=== PATIENT | female | born 1950 | race Caucasian/White ===

== ENCOUNTER → 2018-04-18 09:44 | Outpatient (CLI) | payer OTHER, SELFPAY ==
--- NOTE | 2018-04-18 | DI.MG.S_ITS ---
BILATERAL DIGITAL SCREENING MAMMOGRAM 3D/2D WITH CAD: 04/18/2018 CLINICAL: Routine screening. Comparison is made to exams dated: 03/30/2017 mammogram, 03/28/2016 mammogram - [facility], and 02/02/2015 mammogram - [facility]. The tissue of both breasts is heterogeneously dense. This may lower the sensitivity of mammography. Current study was also evaluated with a Computer Aided Detection (CAD) system. No significant masses, calcifications, or other findings are seen in either breast. There has been no significant interval change. IMPRESSION: NEGATIVE There is no mammographic evidence of malignancy. A 1 year screening mammogram is recommended. This exam was interpreted at Station ID: [id number]. NOTE: For mammograms, a report in lay terms will be sent to the patient. Approximately 15% of breast malignancies will not be visualized mammographically. In the management of a palpable breast mass, a negative mammogram must not discourage biopsy of a clinically suspicious lesion. Electronically Signed By: Ky [email or web address]/adamaris:04/18/2018 19:02:53 letter sent: Normal Exam ACR BI-RADS Category 1: Negative [id number]
== END ==
PROVIDERS: PCP Internal Medicine; Visit Provider Internal Medicine
DX: M89.9 Disorder of bone, unspecified (principal); Z12.31 Encounter for screening mammogram for malignant neoplasm of breast
CPT/HCPCS: 77063; 77067; 77080

== ENCOUNTER → 2019-03-07 13:39 | Outpatient (CLI) | payer MEDICARE, SELFPAY ==
--- NOTE | 2019-03-07 | DI.RAD.S_ITS ---
PROCEDURE: XR SHOULDER RT MIN 2V INDICATIONS: RT SHOULDER PAIN TECHNIQUE: 3 views of the shoulder were acquired. COMPARISON: None. FINDINGS: Bones: No fractures or dislocations. No suspicious bony lesions. Visualized ribs appear intact. Mild acromioclavicular and severe glenohumeral joint narrowing with periarticular osteophyte formation. Superior migration of the humeral head. Soft tissues: No suspicious soft tissue calcifications. IMPRESSION: 1. Severe glenohumeral joint degeneration. 2. Superior migration of the humeral head consistent with rotator cuff pathology and/or muscle atrophy. If indicated MRI could be performed to further evaluate the soft tissues. Dictated by: Kemal LISA Interpreted: Olga Al MD on 03/07/2019 at 14:02 Approved by: Huy Cobian M.D. on 03/11/2019 at 9:34
== END ==
PROVIDERS: PCP Internal Medicine; Visit Provider Internal Medicine
DX: M25.511 Pain in right shoulder (principal); M19.011 Primary osteoarthritis, right shoulder
CPT/HCPCS: 73030

== ENCOUNTER → 2019-04-21 13:59 | Outpatient (CLI) | payer MEDICARE, SELFPAY ==
--- NOTE | 2019-04-21 | DI.MG.S_ITS ---
BILATERAL DIGITAL SCREENING MAMMOGRAM 3D/2D WITH CAD: 04/21/2019 CLINICAL: Routine screening. Comparison is made to exams dated: 04/18/2018 mammogram, 03/30/2017 mammogram, and 03/28/2016 mammogram - [facility]. The tissue of both breasts is heterogeneously dense. This may lower the sensitivity of mammography. Current study was also evaluated with a Computer Aided Detection (CAD) system. No significant masses, calcifications, or other findings are seen in either breast. There has been no significant interval change. IMPRESSION: NEGATIVE There is no mammographic evidence of malignancy. A 1 year screening mammogram is recommended. This exam was interpreted at Station ID: [id number]. NOTE: For mammograms, a report in lay terms will be sent to the patient. Approximately 15% of breast malignancies will not be visualized mammographically. In the management of a palpable breast mass, a negative mammogram must not discourage biopsy of a clinically suspicious lesion. Electronically Signed By: Orlando olmos/[email or web address]:04/21/2019 18:18:13 letter sent: Normal Exam ACR BI-RADS Category 1: Negative [id number]
--- NOTE | 2019-04-21 | DI.RAD.S_ITS ---
PROCEDURE: XR FOOT LT MIN 3V INDICATIONS: LEFT FOOT PAIN TECHNIQUE: 3 views of the foot were acquired. COMPARISON: [facility] [place], YOGESH, XR FOOT 3+ VIEWS LEFT, 03/18/2019, 10:05. FINDINGS: Bones: Chronic appearing fracture the base of the second toe proximal phalanx. There is diffuse interphalangeal joint degeneration. Severe second MTP joint degeneration there is also first and third MTP joint degeneration as well as diffuse hindfoot degenerative sclerosis and spurring. Plantar and posterior calcaneal spur. Central subchondral lucency projecting in the third metatarsal head as before Soft tissues: No tibiotalar joint effusion. Achilles tendon appears normal. IMPRESSION: Severe diffuse left foot osteoarthritis as above. No interval change Dictated by: Shahab Garcia M.D. on 04/21/2019 at 16:43 Approved by: Shahab Garcia M.D. on 04/21/2019 at 16:46
== END ==
PROVIDERS: PCP Internal Medicine; Visit Provider Internal Medicine
DX: Z12.31 Encounter for screening mammogram for malignant neoplasm of breast (principal); M25.572 Pain in left ankle and joints of left foot; M19.072 Primary osteoarthritis, left ankle and foot
CPT/HCPCS: 73630; 77063; 77067

== ENCOUNTER → 2019-09-16 11:09 | Outpatient (CLI) | payer MEDICARE, SELFPAY ==
--- NOTE | 2019-09-16 | DI.RAD.S_ITS ---
PROCEDURE: XR CERVICAL SPINE 2V OR 3V INDICATIONS: Neck pain TECHNIQUE: 5 view(s) of the cervical spine were acquired. COMPARISON: None. FINDINGS: Bones: No fracture identified. Straightening of the normal lordotic curvature. Multilevel degenerative endplate sclerosis and spurring. Diffuse facet arthropathy. Grade 1 anterolisthesis of C4 on C5. Moderate narrowing of the C5-C6 and C6-C7 disc spaces. Soft tissues: No prevertebral soft tissue swelling. IMPRESSION: Multilevel cervical spondylosis most pronounced at C5-C6 and C6-C7. Diffuse facet arthropathy Straightening of the normal lordotic curvature. Dictated by: Shahab Garcia M.D. on 09/16/2019 at 13:11 Approved by: Shahab Garcia M.D. on 09/16/2019 at 13:13
== END ==
PROVIDERS: PCP Internal Medicine; Referring Provider Internal Medicine; Visit Provider Internal Medicine
DX: M54.2 Cervicalgia (principal); M47.812 Spondylosis without myelopathy or radiculopathy, cervical region
CPT/HCPCS: 72040

== ENCOUNTER → 2019-11-26 08:26 | Outpatient (CLI) | payer MEDICARE, SELFPAY ==
--- NOTE | 2019-11-26 | DI.RAD.S_ITS ---
PROCEDURE: XR SHOULDER RT MIN 2V INDICATIONS: hx of shoulder replacement TECHNIQUE: 3 views of the shoulder were acquired. COMPARISON: [facility], CR, XR SHOULDER RT MIN 2V, 03/07/2019, 13:40. FINDINGS: Bones: No fracture. Right brooke arthroplasty in expected postoperative alignment. Hardware appears intact. No evidence of hardware loosening or failure. Soft tissues: No suspicious soft tissue calcifications. IMPRESSION: Expected postoperative alignment of shoulder arthroplasty. Dictated by: Shahab Garcia M.D. on 11/26/2019 at 9:29 Approved by: Shahab Garcia M.D. on 11/26/2019 at 9:30
== END ==
PROVIDERS: PCP Internal Medicine; Referring Provider Internal Medicine; Visit Provider Physician Assistant
DX: Z47.1 Aftercare following joint replacement surgery (principal); Z96.611 Presence of right artificial shoulder joint
CPT/HCPCS: 73030

== ENCOUNTER → 2020-01-27 12:48 | Outpatient (CLI) | payer MEDICARE, SELFPAY ==
--- NOTE | 2020-01-27 | DI.US.S_ITS ---
PROCEDURE: US SOFT TISSUE HEAD AND NECK INDICATIONS: LOCALIZED ENLARGED LYMPH NODES TECHNIQUE: Real-time scanning was performed of the neck region of interest, with image documentation. COMPARISON: None. FINDINGS: Multiple grayscale images were acquired at the patient directed area of palpable concern involving the posterior right neck. There is no underlying mass, fluid collection, or adenopathy. Overlying skin appears normal in sonographic appearance. IMPRESSION: No sonographic abnormalities identified at the patient directed area of palpable concern involving the right posterior neck. Dictated by: Orlando Sequeira M.D. on 01/27/2020 at 16:20 Approved by: Orlando Sequeira M.D. on 01/27/2020 at 16:21
== END ==
PROVIDERS: PCP Internal Medicine; Referring Provider Internal Medicine; Visit Provider Internal Medicine
DX: R59.0 Localized enlarged lymph nodes (principal)
CPT/HCPCS: 76536

== ENCOUNTER 2020-03-25 13:45 | Outpatient (RCR) | payer MEDICARE, SELFPAY ==
--- NOTE | 2020-03-02 16:40 | PT.OIE ---
Current Diagnoses Cervicalgia (03/02/20) Past Medical History (Last Updated 04/22/19 @ 15:17 by Consuelo Levy RN) History of migraine (Acute) Hypothyroid (Acute) Maxillary sinusitis (Acute ~09/2016) Past Surgical History (Last Updated 04/22/19 @ 15:17 by Consuelo Levy RN) Hx of sinus surgery (Acute) Visit Care Team Role Provider Type EDISON Randhawa Attending Provider Advanced Upholsterer Outside Family Provider Primary Care Provider Referring Provider Specialty: Family Practice Address: [address] [place] [address], [facility] Email: [email or web address] Physical Therapy Initial Evaluation PT-OP-A Visit Information Start: 03/02/20 12:52 Freq: Status: Active Protocol: Document 03/02/20 15:54 HH (Rec: 03/02/20 16:40 HH [email or web address]) Out-Patient Physical Therapy Visit Information Visit Information Visit Type Initial Evaluation Visit Start Time 13:48 Visit Stop Time 14:30 Total Visit Minutes 42 Visit Number 1 Number of BORING MACHINE SET UP OPERATOR JIG Visits 0 Evaluation Information Evaluation Date 03/02/20 PT-OP-B Current Condition Start: 03/02/20 12:52 Freq: Status: Active Protocol: Document 03/02/20 15:54 HH (Rec: 03/02/20 16:40 HH [email or web address]) Current Condition History of Current Condition Onset Date years ago Current Complaints chronic neck pain and tension headache History of Current Condition Pt is a 69 yo female here for chronic neck pain started years ago. Pt stated she had severe neck with radiating R shoulder pain last year and then received R shoulder replacement this april. (pt also had L shoulder replacement years ago) Although her shoulder pain and ROM have improved, she still has R neck pain. She described her neck pain as dull achy pain and located at muscle bump area who thought it was an enlarged lymph node. Pt did x-ray and US r/o abnormalities. Her pain tends to get worse towards the end of the day and it becomes tension headache at the base of the skull as well. Pt usually take tylenol 1000mg twice a day, along with hot/ cold pad to feel better. Movement does not aggravate her symptoms. Prior Treatments and Tests US 01/27/20 @ neck =No sonographic abnormalities identified at the patient directed area of palpable concern involving the right posterior neck. x-ray 09/15: IMPRESSION: Multilevel cervical spondylosis most pronounced at C5-C6 and C6-C7. Diffuse facet arthropathy. Straightening of the normal lordotic curvature. Treatment Goals Patient/Caregiver Goals 1. to be pain free during the day 2. to be headache free at the end of the day. PT-OP-C Subjective Start: 03/02/20 12:52 Freq: Status: Active Protocol: Document 03/02/20 15:54 HH (Rec: 03/02/20 16:40 HH [email or web address]) Patient Questionnaires Neck Disability Index NDI Score 7 Quick Dash- Upper Extremity Quick Dash UE Score 22.7 Quick Dash UE Impairment 20 to 39% Impaired (Score 20- 39) PT-OP-F Manual Assessment Start: 03/02/20 12:52 Freq: Status: Active Protocol: Document 03/02/20 15:54 HH (Rec: 03/02/20 16:40 HH [email or web address]) Manual Assessments Soft Tissue Assessment Soft Tissue Mobility Assessment tenderness to pressure at R paraspinals at C5-C6 level. Slight muscle bump noted. tenderness noted to suboccipital muscle group but no radiating pain PT-OP-K Range of Motion Start: 03/02/20 12:52 Freq: Status: Active Protocol: Document 03/02/20 15:54 HH (Rec: 03/02/20 16:40 HH [email or web address]) Cervical Spine Range of Motion Cervical Spine Active Degrees Testing Position Standing Flexion 42 Extension 70 Rotation Left 72 Rotation Right 68 Lateral Flexion Left 24 Lateral Flexion Right 25 ROM Limitations Soft Tissue Tightness Comments no pain noted. PT-OP-L Special Tests Start: 03/02/20 12:52 Freq: Status: Active Protocol: Document 03/02/20 15:54 HH (Rec: 03/02/20 16:40 HH [email or web address]) Special Tests Cervical Spine Special Tests Traction Test Results -ve Spurling's Test Test Results -ve PT-OP-M Strength Start: 03/02/20 12:52 Freq: Status: Active Protocol: Document 03/02/20 15:54 HH (Rec: 03/02/20 16:40 HH [email or web address]) Cervical Spine Strength Cervical Spine Manual Muscle Testing Testing Position Supine Comments deep cervical flexion test= 13 s, excessive engagement with SCM. PT-OP-Q Treatments Start: 03/02/20 12:52 Freq: Status: Active Protocol: Document 03/02/20 15:54 HH (Rec: 03/02/20 16:40 HH [email or web address]) Therapeutic Exercises Supine Exercises tennis ball Supine Exercise Name STM Equipment Used 2 tennis ball in sock Reps/Minutes 2 mins Comments for HEP neck isometric hold Supine Exercise Name deep cervical flexion position Side bilateral Reps/Minutes 5 sec hold x 5 Comments for HEP chin tuck Side bilateral Reps/Minutes 8 x 2 Comments for HEP against pillow PT-OP-T Assessment and Plan Start: 03/02/20 12:52 Freq: Status: Active Protocol: Document 03/02/20 15:54 (Rec: 03/02/20 16:40 HH [email or web address]) Physical Therapy Assessment Rehab Potential Rehabilitation Potential Excellent Evaluation Complexity Number of Personal Factors/Comorbidities 1-2 Number of Body Systems Impaired 1-2 Clinical Presentation at Evaluation Stable Impairments Impairments Functional Activities, Functional Mobility,Pain, Posture,ROM,Soft Tissue Mobility,Strength Goals HEP Impairment pt does not have HEP Snf Goal (LTG) pt will be compliant to HEP independently and safely at home to manage her neck pain LTG Duration 4 weeks tension headache Impairment pt has tension headache towards the end of the day Short Term Goal (STG) pt will have no more than 4 times of tension headache during the week STG Duration 4 weeks Music Manager Goal (LTG) pt will no longer have tension headache in a daily basis LTG Duration 8 weeks neck stability Impairment deep cervical flexor test = 13s Short Term Goal (STG) pt will improve her deep cervical flexors strength by completing deep cervical flexion test by 20 s STG Duration 4 weeks Music Manager Goal (LTG) pt will improve her deep cervical flexors strength by completing deep cervical flexion test by 30 s LTG Duration 8 weeks Neck pain Impairment neck pain 4/10 at all time Short Term Goal (STG) Pt will have UNDERLINER no more than 3 /10 at the end of the day STG Duration 4 weeks Music Manager Goal (LTG) pt will not need to take tylenol for pain management and will have UNDERLINER no more than 2/10 at the end of the day LTG Duration 8 weeks Assessment Summary Assessment Pt is a 69yo female here for her chronic neck pain (pt had bilateral shoulder replacements). Upon assessment , pt presents neck instability with significant weakness for deep cervical flexors. She also has tenderness to pressure at suboccipital muscle group which possibly leads to her tension headache d/t her significant FHP. Pt denies any radicular symptoms and her tends to get worse towards the end of the day. Pt reports improved of her symptoms after introduction of her new HEP. Pt will beenfit from skilled therapy to improve her deep cervical flexors strength, cervical stability and overall upper cervical mobility in order for her to be pain/ headache free for functional activities. Physical Therapy Plan Frequency and Duration Frequency of Treatment Every Other Week Duration of Treatment 10 weeks Plan of Care Start Date 03/02/20 Plan of Care End Date 05/16/20 Therapeutic Interventions Therapeutic Interventions Home Exercise Program,Joint Mobilizations,Manual Therapy, Neuromuscular Re-education, Patient/Caregiver Education, Self-Care/Home Management,Soft Tissue Mobilization,Taping, Therapeutic Activities, Therapeutic Exercises Modalities Biofeedback,Cold Pack/Ice Massage,Electric Stimulation, Hot Packs,Infrared Therapy, Traction- Mechanical Next Visit Focus/Plan Next Note Type Treatment Note Next Visit Plan suboccipital release recheck HEP upper cervical mobility, check Tspine mobility deep cervical flexor strengthening
--- NOTE | 2020-03-02 16:40 | PT.OPPOC ---
Physical, Occupational & Speech Therapy At [facility] Current Diagnoses Cervicalgia (03/02/20) Visit Care Team Role Provider Type EDISON Randhawa Attending Provider Advanced Residence Leasing Agent Family Provider Primary Care Provider Referring Provider Specialty: Family Practice Address: [address] [place] [address] [place], [address] Email: [email or web address] Plan Of Care PT-OP-T Assessment and Plan Start: 03/02/20 12:52 Freq: Status: Active Protocol: Document 03/02/20 15:54 HH (Rec: 03/02/20 16:40 HH [email or web address]) Physical Therapy Assessment Rehab Potential Rehabilitation Potential Excellent Evaluation Complexity Number of Personal Factors/Comorbidities 1-2 Number of Body Systems Impaired 1-2 Clinical Presentation at Evaluation Stable Impairments Impairments Functional Activities, Functional Mobility,Pain, Posture,ROM,Soft Tissue Mobility,Strength Goals HEP Impairment pt does not have HEP Halfway Goal (LTG) pt will be compliant to HEP independently and safely at home to manage her neck pain LTG Duration 4 weeks tension headache Impairment pt has tension headache towards the end of the day Short Term Goal (STG) pt will have no more than 4 times of tension headache during the week STG Duration 4 weeks Halfway Goal (LTG) pt will no longer have tension headache in a daily basis LTG Duration 8 weeks neck stability Impairment deep cervical flexor test = 13s Short Term Goal (STG) pt will improve her deep cervical flexors strength by completing deep cervical flexion test by 20 s STG Duration 4 weeks Halfway Goal (LTG) pt will improve her deep cervical flexors strength by completing deep cervical flexion test by 30 s LTG Duration 8 weeks Neck pain Impairment neck pain 4/10 at all time Short Term Goal (STG) Pt will have PHYSICAL GEOGRAPHER no more than 3 /10 at the end of the day STG Duration 4 weeks Wardrobe Assistant Goal (LTG) pt will not need to take tylenol for pain management and will have PHYSICAL GEOGRAPHER no more than 2/10 at the end of the day LTG Duration 8 weeks Assessment Summary Assessment Pt is a 69yo female here for her chronic neck pain (pt had bilateral shoulder replacements). Upon assessment , pt presents neck instability with significant weakness for deep cervical flexors. She also has tenderness to pressure at suboccipital muscle group which possibly leads to her tension headache d/t her significant FHP. Pt denies any radicular symptoms and her tends to get worse towards the end of the day. Pt reports improved of her symptoms after introduction of her new HEP. Pt will beenfit from skilled therapy to improve her deep cervical flexors strength, cervical stability and overall upper cervical mobility in order for her to be pain/ headache free for functional activities. Physical Therapy Plan Frequency and Duration Frequency of Treatment Every Other Week Duration of Treatment 10 weeks Plan of Care Start Date 03/02/20 Plan of Care End Date 05/16/20 Therapeutic Interventions Therapeutic Interventions Home Exercise Program,Joint Mobilizations,Manual Therapy, Neuromuscular Re-education, Patient/Caregiver Education, Self-Care/Home Management,Soft Tissue Mobilization,Taping, Therapeutic Activities, Therapeutic Exercises Modalities Biofeedback,Cold Pack/Ice Massage,Electric Stimulation, Hot Packs,Infrared Therapy, Traction- Mechanical Next Visit Focus/Plan Next Note Type Treatment Note Next Visit Plan suboccipital release recheck HEP upper cervical mobility, check Tspine mobility deep cervical flexor strengthening Plan of Care Dates Plan of Care Start Date 03/02/20 Plan of Care End Date 05/16/20 Electronically Signed by: Debby Browning, PT 03/02/20 1640 Please Sign and Return: I have reviewed this Plan of Care and certify that the skilled therapy services above are required to meet the patient?s needs. Physician Signature Date Printed Name and Credentials Clinical Instructor Signature Printed Name and Credentials
--- NOTE | 2020-03-25 14:30 | PT.OTN ---
Current Diagnoses Cervicalgia (03/25/20) Physical Therapy Treatment Note PT-OP-A Visit Information Start: 03/02/20 12:52 Freq: Status: Active Protocol: Document 03/25/20 13:40 HH (Rec: 03/25/20 14:30 [id number]) Out-Patient Physical Therapy Visit Information Visit Information Visit Type Treatment Note Visit Start Time 13:45 Visit Stop Time 14:30 Total Visit Minutes 45 Visit Number 2 Number of SHANK STITCHER Visits 0 PT-OP-B Current Condition Start: 03/02/20 12:52 Freq: Status: Active Protocol: Document 03/02/20 15:54 HH (Rec: 03/02/20 16:40 HH [email or web address]) Current Condition History of Current Condition Onset Date years ago Current Complaints chronic neck pain and tension headache History of Current Condition Pt is a 69 yo female here for chronic neck pain started years ago. Pt stated she had severe neck with radiating R shoulder pain last year and then received R shoulder replacement this april. (pt also had L shoulder replacement years ago) Although her shoulder pain and ROM have improved, she still has R neck pain. She described her neck pain as dull achy pain and located at muscle bump area who thought it was an enlarged lymph node. Pt did x-ray and US r/o abnormalities. Her pain tends to get worse towards the end of the day and it becomes tension headache at the base of the skull as well. Pt usually take tylenol 1000mg twice a day, along with hot/ cold pad to feel better. Movement does not aggravate her symptoms. Prior Treatments and Tests US 01/27/20 @ neck =No sonographic abnormalities identified at the patient directed area of palpable concern involving the right posterior neck. x-ray 09/15: IMPRESSION: Multilevel cervical spondylosis most pronounced at C5-C6 and C6-C7. Diffuse facet arthropathy. Straightening of the normal lordotic curvature. Treatment Goals Patient/Caregiver Goals 1. to be pain free during the day 2. to be headache free at the end of the day. PT-OP-C Subjective Start: 03/02/20 12:52 Freq: Status: Active Protocol: Document 03/25/20 13:40 HH (Rec: 03/25/20 14:30 HH [id number]) OP-PT Subjective Patient Comments Patient Comments Im feeling better. All the exercises have been very helpful. All my pain has been less but still there. I still have that bump at my neck. I am able to do all the stuff without hurting too much Patient Reported Progress Improving PT-OP-F Manual Assessment Start: 03/02/20 12:52 Freq: Status: Active Protocol: Document 03/02/20 15:54 HH (Rec: 03/02/20 16:40 HH [email or web address]) Manual Assessments Soft Tissue Assessment Soft Tissue Mobility Assessment tenderness to pressure at R paraspinals at C5-C6 level. Slight muscle bump noted. tenderness noted to suboccipital muscle group but no radiating pain PT-OP-K Range of Motion Start: 03/02/20 12:52 Freq: Status: Active Protocol: Document 03/02/20 15:54 HH (Rec: 03/02/20 16:40 HH [email or web address]) Cervical Spine Range of Motion Cervical Spine Active Degrees Testing Position Standing Flexion 42 Extension 70 Rotation Left 72 Rotation Right 68 Lateral Flexion Left 24 Lateral Flexion Right 25 ROM Limitations Soft Tissue Tightness Comments no pain noted. PT-OP-L Special Tests Start: 03/02/20 12:52 Freq: Status: Active Protocol: Document 03/02/20 15:54 HH (Rec: 03/02/20 16:40 HH [email or web address]) Special Tests Cervical Spine Special Tests Traction Test Results -ve Spurling's Test Test Results -ve PT-OP-M Strength Start: 03/02/20 12:52 Freq: Status: Active Protocol: Document 03/02/20 15:54 HH (Rec: 03/02/20 16:40 HH [email or web address]) Cervical Spine Strength Cervical Spine Manual Muscle Testing Testing Position Supine Comments deep cervical flexion test= 13 s, excessive engagement with SCM. PT-OP-Q Treatments Start: 03/02/20 12:52 Freq: Status: Active Protocol: Document 03/25/20 13:40 HH (Rec: 03/25/20 14:30 HH [id number]) Therapeutic Exercises Supine Exercises deep cervical flexion + rotation Side bilateral Reps/Minutes 8 x2 Comments with deep cervical flexion first then rotation. tennis ball Supine Exercise Name STM Equipment Used 2 tennis ball in sock Reps/Minutes 2 mins Comments for HEP neck isometric hold Supine Exercise Name deep cervical flexion position Side bilateral Reps/Minutes 5 sec hold x 5 Comments for HEP chin tuck Side bilateral Reps/Minutes 8 x 2 Comments for HEP against pillow Sidelying Exercises open book Side bilateral Reps/Minutes 8 x2 Comments for HEP Manual Therapy Treatment Soft Tissue Mobilization SCM Mobilization Type Sustained Pressure,Trigger Point Release Intensity/Depth Moderate Body Position Supine Comments R SCM is more pain sensitive pecs Mobilization Type Sustained Pressure,Trigger Point Release Intensity/Depth Moderate Body Position Supine Comments Left pecs suboccipital release Mobilization Type Sustained Pressure,Trigger Point Release Intensity/Depth Moderate Body Position Supine PT-OP-T Assessment and Plan Start: 03/02/20 12:52 Freq: Status: Active Protocol: Document 03/25/20 13:40 HH (Rec: 03/25/20 14:30 HH [id number]) Physical Therapy Assessment Goals HEP Impairment pt does not have HEP Jail Goal (LTG) pt will be compliant to HEP independently and safely at home to manage her neck pain LTG Duration 4 weeks tension headache Impairment pt has tension headache towards the end of the day Short Term Goal (STG) pt will have no more than 4 times of tension headache during the week STG Duration 4 weeks Outreach Coordinator Goal (LTG) pt will no longer have tension headache in a daily basis LTG Duration 8 weeks neck stability Impairment deep cervical flexor test = 13s Short Term Goal (STG) pt will improve her deep cervical flexors strength by completing deep cervical flexion test by 20 s STG Duration 4 weeks Outreach Coordinator Goal (LTG) pt will improve her deep cervical flexors strength by completing deep cervical flexion test by 30 s LTG Duration 8 weeks Neck pain Impairment neck pain 4/10 at all time Short Term Goal (STG) Pt will have ANGLE SHEAR OPERATOR no more than 3 /10 at the end of the day STG Duration 4 weeks Outreach Coordinator Goal (LTG) pt will not need to take tylenol for pain management and will have ANGLE SHEAR OPERATOR no more than 2/10 at the end of the day LTG Duration 8 weeks Assessment Summary Assessment Pt reports improved pain and symptoms since evaluation. Pt has improved depe flexor strength and ROM. Has good mechanics with HEP. Added open book and chin tuck with rotation today. Might d/c pt after next visit. Physical Therapy Plan Frequency and Duration Frequency of Treatment Every Other Week Duration of Treatment 10 weeks Plan of Care Start Date 03/02/20 Plan of Care End Date 05/16/20 Next Visit Focus/Plan Next Note Type Treatment Note Next Visit Plan suboccipital release recheck HEP upper cervical mobility, check Tspine mobility deep cervical flexor strengthening
--- NOTE | 2020-08-25 09:32 | PT.OPDS ---
Current Diagnoses Cervicalgia (03/25/20) Visit Care Team Role Provider Type EDISON Randhawa Attending Provider Advanced Table Games Dealer Family Provider Primary Care Provider Referring Provider Specialty: Family Practice Address: [address] [place] [address], [id number] Email: [email or web address] Visit Number Visit Number 2 Discharge Summary PT-OP-T Assessment and Plan Start: 03/02/20 12:52 Freq: Status: Active Protocol: Document 08/25/20 09:32 (Rec: 08/25/20 09:32 [email or web address]) Physical Therapy Plan Discharge Physical Therapy Discharge Reasons No Longer Attending PT Discharge Comments per EMR, pt progressed well within one visit and has a good understanding with her HEP. DC from PT
== END 2020-08-25 13:43 ==
LOC: PHYS 13:45
PROVIDERS: Family Provider Internal Medicine; PCP Internal Medicine; Referring Provider Internal Medicine; Visit Provider Internal Medicine
DX: M54.2 Cervicalgia (principal)
CPT/HCPCS: 97110; 97140; 97161

== ENCOUNTER → 2020-09-03 13:03 | Outpatient (CLI) | payer MEDICARE, SELFPAY ==
--- NOTE | 2020-09-03 | DI.RAD.S_ITS ---
PROCEDURE: XR FOOT LT MIN 3V INDICATIONS: LEFT FOOT PAIN, HX OF METATARSAL FRACTURE TECHNIQUE: 3 views of the foot were acquired. COMPARISON: [facility], CR, XR FOOT LT MIN 3V, 04/21/2019, 14:13. FINDINGS: Bones: No fractures or dislocations. No suspicious bony lesions. There is a pattern of degenerative osteoarthritic change at the 1st MTP joint and mild bunion formation. At the 2nd proximal phalanx there is relatively severe degenerative osteoarthritis at the joint space and a pattern of sclerosis that is seen at the 2nd proximal phalanx not present on plain film imaging from March of 2019. Soft tissues: No tibiotalar joint effusion. Achilles tendon appears normal. 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 Please correlate for whether infection could be present in this region. Mild osteoarthritis and bunion formation medial 1st metatarsal head. Dictated by: Huy Cobian M.D. on 09/03/2020 at 15:40 Approved by: Huy Cobian M.D. on 09/03/2020 at 15:42
== END ==
PROVIDERS: Family Provider Internal Medicine; PCP Internal Medicine; Referring Provider Internal Medicine; Visit Provider Internal Medicine
DX: M79.672 Pain in left foot (principal); M19.072 Primary osteoarthritis, left ankle and foot; M21.612 Bunion of left foot
CPT/HCPCS: 73630

== ENCOUNTER 2020-11-03 11:15 | Outpatient (RCR) | payer MEDICARE, SELFPAY ==
--- NOTE | 2020-10-06 17:16 | PT.OIE ---
Current Diagnoses Abnormal posture (10/06/20) Presence of right artificial shoulder joint (10/06/20) Past Medical History (Last Updated 04/22/19 @ 15:17 by Consuelo Levy RN) History of migraine Hypothyroid Maxillary sinusitis (~09/2016) Past Surgical History (Last Updated 04/22/19 @ 15:17 by Consuelo Levy RN) Hx of sinus surgery Visit Care Team Role Provider Type EDISON Randhawa Family Provider Advanced Principal Account Clerk Primary Care Provider Specialty: Family Practice Address: [address] [place] [address] [place], [address] Email: [email or web address] Reyes [email or web address]-C Attending Provider Non-Staff Referring Provider Specialty: Medical Address: [address] [place] [address], [phone] Fax: Email: Physical Therapy Initial Evaluation PT-OP-A Visit Information Start: 10/05/20 15:08 Freq: Status: Active Protocol: Document 10/06/20 10:30 AW (Rec: 10/06/20 16:59 AW [email or web address]) Out-Patient Physical Therapy Visit Information Visit Information Visit Type Initial Evaluation Visit Start Time 09:45 Visit Stop Time 10:30 Total Visit Minutes 45 Visit Number 1 Number of CORPORATE DIRECTOR OF PHARMACY Visits 0 Evaluation Information Evaluation Date 10/06/20 PT-OP-B Current Condition Start: 10/05/20 15:08 Freq: Status: Active Protocol: Document 10/06/20 10:30 AW (Rec: 10/06/20 08:56 AW [email or web address]) Current Condition History of Current Condition Onset Date three months Current Complaints worsening R shoulder pain s/p R TSA History of Current Condition Pt had L TSA 12 years ago and R TSA on October 21, 2019 at . Both are anatomic arthroplasties. She rehabbed herself following R TSA to the point of functional range of motion but she has been having right anterior shoulder pain (alternately sharp, burning, throbbing) for about three months now. She describes the pain as constant like a toothache. She uses tylenol, heat, and cold to take edge off. She also has intermittent neck pain, tension headaches, and migraines but they are largely resolved at this time. She has history of BPPV for which she was treated at this clinic . She still has dizziness when leaning forward and with some bed mobility but states it does not interfere with her daily function if she takes the time to let symptoms resolve. Pt endorses escalating depression and anxiety which are exacerbated by family stress associated with caring for her 97 yo mother (at [facility] [employer]). P regularly lifts her mother's 4WW into her car trunk. Prior Treatments and Tests Pt saw ANUM Little at Ortho two weeks ago who thinks possible partial tear subscapularis. Recommends no resistance training in initial phase of rehab. x-ray R shoulder - 2 weeks ago - implant looks good, no loose screws X-ray 09/16/19: IMPRESSION: Multilevel cervical spondylosis most pronounced at C5-C6 and C6-C7. Diffuse facet arthropathy. Straightening of the normal lordotic curvature. Future Testing and Treatments Planned None identified. 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 Personal Factors Other Personal Factors That May Effect (-) depression and anxiety Therapy/Recovery (+) positive association with movement (+) good coping skills and awareness of stressors PT-OP-C Subjective Start: 10/05/20 15:08 Freq: Status: Active Protocol: Document 10/06/20 10:30 AW (Rec: 10/06/20 16:59 AW [email or web address]) OP-PT Subjective Patient Comments Patient Comments The ortho thinks I have a partial tear in the subscapularis tendon. Patient Questionnaires Quick Dash- Upper Extremity Quick Dash UE Score 54.5 Quick Dash UE Impairment 40 to 59% Impaired (Score 40- 59) OP-PT Pain Assessment Pain Assessment Grid Paper Pain Assessment Grid Completed Yes: scanned to EMR PT-OP-F Manual Assessment Start: 10/05/20 15:08 Freq: Status: Active Protocol: Document 10/06/20 10:30 AW (Rec: 10/06/20 16:59 AW [email or web address]) Manual Assessments Soft Tissue Assessment Soft Tissue Mobility Assessment Pt has increased tone throughout bilateral upper traps but more significantly on the right side. She has well-healed scars on the both anterior shoulders with no appreciable adhesions. There is atrophy along the surgical scar correlating with pec major on the right side. Joint Mobility Assessment Joint Mobility Assessment Pt has decreased posterior GH glide on the right compared with the left. PT-OP-H Neuro Start: 10/05/20 15:08 Freq: Status: Active Protocol: Document 10/06/20 10:30 AW (Rec: 10/06/20 16:59 AW [email or web address]) Sensation Evaluation Gross Sensation Gross Sensation WNL Deep Tendon Reflex & Clonus Assessment Deep Tendon Reflex Bilateral Tricep Deep Tendon Reflex 1+ Diminished Bilateral Bicep Deep Tendon Reflex 2+ Normal PT-OP-J Posture/Palpation/Skin Start: 10/05/20 15:08 Freq: Status: Active Protocol: Document 10/06/20 10:30 AW (Rec: 10/06/20 16:59 AW [email or web address]) Posture Evaluation Comments Posture Comments Pt has forward head and abducted scapulae. She has significant dowager's hump with limited extension in upper thoracic spine. Palpation Assessment Location right shoulder Palpation Details TTP along well-healed scar. Pt reports the sensitivity runs deep. PT-OP-K Range of Motion Start: 10/05/20 15:08 Freq: Status: Active Protocol: Document 10/06/20 10:30 AW (Rec: 10/06/20 16:59 AW [email or web address]) Cervical Spine Range of Motion Cervical Spine Active Degrees Testing Position Sitting Flexion 44 Extension 45 Rotation Left 45 Rotation Right 45 Lateral Flexion Left 30 Lateral Flexion Right 28 Comments All cervical ROM WNL Shoulder Goniometric Range of Motion Shoulder Right Active Testing Position Sitting Flexion 145 Extension 55 Abduction 146 External Rotation at 90 degrees 95 Abduction Internal Rotation Behind Back (text) right back pocket Left Active Testing Position Sitting Flexion 155 Extension 70 Abduction 155 Internal Rotation Behind Back (text) L1 Shoulder ROM Limitations Shoulder ROM Limitations Pain Elbow/Forearm Range of Motion Elbow/Forearm ROM Limitations Comments WNL PT-OP-M Strength Start: 10/05/20 15:08 Freq: Status: Active Protocol: Document 10/06/20 10:30 AW (Rec: 10/06/20 16:59 AW [email or web address]) Scapula Strength Scapula Manual Muscle Testing bilateral Elevation (C4) 5 Normal Adduction 4 Good Abduction 4+ Good+ Depression 4 Good Shoulder Strength Shoulder Manual Muscle Testing Right Flexion 4 Good Extension 4 Good Abduction (C5) 4 Good External Rotation 4 Good Internal Rotation 4 Good Comments Flexion, abduction, IR, and extension all painful. Left Flexion 4+ Good+ Extension 4+ Good+ Abduction (C5) 4+ Good+ External Rotation 4+ Good+ Internal Rotation 4+ Good+ PT-OP-Q Treatments Start: 10/05/20 15:08 Freq: Status: Active Protocol: Document 10/06/20 10:30 AW (Rec: 10/06/20 17:15 AW [email or web address]) Therapeutic Exercises Sitting Exercises scapular retraction Sitting Exercise Name scapular retraction Side bilateral Reps/Minutes 5 SH x 10 Standing Exercises isometric IR Standing Exercise Name isometric IR Side bilateral Equipment Used doorframe Reps/Minutes 5 SH x 10 Comments with instruction for 25-50% power Manual Therapy Treatment Soft Tissue Mobilization pecs Mobilization Type Sustained Pressure,Trigger Point Release Intensity/Depth Moderate Body Position Supine Comments right pecs Self-Care/Home Management Treatment Education Patient Education Home Exercise Program Activities Self-Care/Home Management Activities iso IR, scapular retraction PT-OP-T Assessment and Plan Start: 10/05/20 15:08 Freq: Status: Active Protocol: Document 10/06/20 10:30 AW (Rec: 10/06/20 17:15 AW [email or web address]) Physical Therapy Assessment Rehab Potential Rehabilitation Potential Good Evaluation Complexity Number of Personal Factors/Comorbidities 1-2 Number of Body Systems Impaired 1-2 Clinical Presentation at Evaluation Stable Impairments Impairments Functional Activities,Pain, Posture,ROM,Soft Tissue Mobility,Strength Other Concerns Barriers to Rehabilitation (-) anxiety and depression Goals Three Impairment strength Short Term Goal (STG) Pt will improve right GH flexion and abduction strength to 4+/5. STG Duration 6 weeks - 11/17/20 Concrete Vault Maker Goal (LTG) Pt will lift 4WW into her trunk without increase in baseline pain. LTG Duration 12 weeks - 12/29/20 Two Impairment ROM Usp Goal (LTG) Pt will improve right GH flexion and abduction to at least 155 degrees for improved ability wash her hair without pain. LTG Duration 12 weeks - 12/29/20 One Impairment lacks HEP Short Term Goal (STG) Pt will be independent with HEP to support therapy services provided in clinic. 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 She had right anatomic total shoulder arthroplasty ~1 year ago and rehabbed independently. She presents with ROM and strength deficits consistent with rotator cuff pathology affecting internal rotation specifically. Habitual postures are likely contributing to severity of symptoms. Pt would benefit from skilled therapy to address ROM, strength, and posture to improve her ability to participate in recreational and self-care activities. Physical Therapy Plan Frequency and Duration Frequency of Treatment 2x/Week Duration of Treatment 12 weeks Plan of Care Start Date 10/06/20 Plan of Care End Date 12/29/20 Therapeutic Interventions Therapeutic Interventions Home Exercise Program,Joint Mobilizations,Manual Therapy, Neuromuscular Re-education, Patient/Caregiver Education, Self-Care/Home Management, Sensory Integration,Soft Tissue Mobilization,Taping, Therapeutic Activities, Therapeutic Exercises Modalities Cold Pack/Ice Massage,Electric Stimulation,Hot Packs Next Visit Focus/Plan Next Note Type Treatment Note Next Visit Plan review HEP, initiate AROM and AAROM
--- NOTE | 2020-10-06 17:16 | PT.OPPOC ---
Physical, Occupational & Speech Therapy At [facility] Current Diagnoses Abnormal posture (10/06/20) Presence of right artificial shoulder joint (10/06/20) Visit Care Team Role Provider Type EDISON Randhawa Family Provider Advanced Radio Interference Investigator Primary Care Provider Specialty: Family Practice Address: [address] [place] [address], [facility] Email: [email or web address] Scott Reyes PA-C Attending Provider Non-Staff Referring Provider Specialty: Medical Address: [address] [place] [address], [facility] Fax: Email: Plan Of Care PT-OP-T Assessment and Plan Start: 10/05/20 15:08 Freq: Status: Active Protocol: Document 10/06/20 10:30 AW (Rec: 10/06/20 17:15 AW [email or web address]) Physical Therapy Assessment Rehab Potential Rehabilitation Potential Good Evaluation Complexity Number of Personal Factors/Comorbidities 1-2 Number of Body Systems Impaired 1-2 Clinical Presentation at Evaluation Stable Impairments Impairments Functional Activities,Pain, Posture,ROM,Soft Tissue Mobility,Strength Other Concerns Barriers to Rehabilitation (-) anxiety and depression Goals Three Impairment strength Short Term Goal (STG) Pt will improve right GH flexion and abduction strength to 4+/5. STG Duration 6 weeks - 11/17/20 Anesthesiologist/Physician Goal (LTG) Pt will lift 4WW into her trunk without increase in baseline pain. LTG Duration 12 weeks - 12/29/20 Two Impairment ROM Penitentiary Goal (LTG) Pt will improve right GH flexion and abduction to at least 155 degrees for improved ability wash her hair without pain. LTG Duration 12 weeks - 12/29/20 One Impairment lacks HEP Short Term Goal (STG) Pt will be independent with HEP to support therapy services provided in clinic. 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 She had right anatomic total shoulder arthroplasty ~1 year ago and rehabbed independently. She presents with ROM and strength deficits consistent with rotator cuff pathology affecting internal rotation specifically. Habitual postures are likely contributing to severity of symptoms. Pt would benefit from skilled therapy to address ROM, strength, and posture to improve her ability to participate in recreational and self-care activities. Physical Therapy Plan Frequency and Duration Frequency of Treatment 2x/Week Duration of Treatment 12 weeks Plan of Care Start Date 10/06/20 Plan of Care End Date 12/29/20 Therapeutic Interventions Therapeutic Interventions Home Exercise Program,Joint Mobilizations,Manual Therapy, Neuromuscular Re-education, Patient/Caregiver Education, Self-Care/Home Management, Sensory Integration,Soft Tissue Mobilization,Taping, Therapeutic Activities, Therapeutic Exercises Modalities Cold Pack/Ice Massage,Electric Stimulation,Hot Packs Next Visit Focus/Plan Next Note Type Treatment Note Next Visit Plan review HEP, initiate AROM and AAROM Plan of Care Dates Plan of Care Start Date 10/06/20 Plan of Care End Date 12/29/20 Electronically Signed by: Katie Estes, PT 10/06/20 1540 Please Sign and Return: I have reviewed this Plan of Care and certify that the skilled therapy services above are required to meet the patient?s needs. Physician Signature Date Printed Name and Credentials Clinical Instructor Signature Printed Name and Credentials
--- NOTE | 2020-10-12 16:31 | PT.OTN ---
Current Diagnoses Abnormal posture (10/12/20) Presence of right artificial shoulder joint (10/12/20) Physical Therapy Treatment Note PT-OP-A Visit Information Start: 10/05/20 15:08 Freq: Status: Active Protocol: Document 10/12/20 15:15 AW (Rec: 10/12/20 15:13 AW [id number]) Out-Patient Physical Therapy Visit Information Visit Information Visit Type Treatment Note Visit Start Time 14:30 Visit Stop Time 15:15 Total Visit Minutes 45 Visit Number 2 Number of CAN CLOSING MACHINE OPERATOR Visits 0 Evaluation Information Evaluation Date 10/06/20 PT-OP-B Current Condition Start: 10/05/20 15:08 Freq: Status: Active Protocol: Document 10/06/20 10:30 AW (Rec: 10/06/20 08:56 AW [email or web address]) Current Condition History of Current Condition Onset Date three months Current Complaints worsening R shoulder pain s/p R TSA History of Current Condition Pt had L TSA 12 years ago and R TSA on October 21, 2019 at . Both are anatomic arthroplasties. She rehabbed herself following R TSA to the point of functional range of motion but she has been having right anterior shoulder pain (alternately sharp, burning, throbbing) for about three months now. She describes the pain as constant like a toothache. She uses tylenol, heat, and cold to take edge off. She also has intermittent neck pain, tension headaches, and migraines but they are largely resolved at this time. She has history of BPPV for which she was treated at this clinic . She still has dizziness when leaning forward and with some bed mobility but states it does not interfere with her daily function if she takes the time to let symptoms resolve. Pt endorses escalating depression and anxiety which are exacerbated by family stress associated with caring for her 97 yo mother (at [employer]). P regularly lifts her mother's 4WW into her car trunk. Prior Treatments and Tests Pt saw ANUM Little at [facility] two weeks ago who thinks possible partial tear subscapularis. Recommends no resistance training in initial phase of rehab. x-ray R shoulder - 2 weeks ago - implant looks good, no loose screws X-ray 09/16/19: IMPRESSION: Multilevel cervical spondylosis most pronounced at C5-C6 and C6-C7. Diffuse facet arthropathy. Straightening of the normal lordotic curvature. Future Testing and Treatments Planned None identified. 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 Personal Factors Other Personal Factors That May Effect (-) depression and anxiety Therapy/Recovery (+) positive association with movement (+) good coping skills and awareness of stressors PT-OP-C Subjective Start: 10/05/20 15:08 Freq: Status: Active Protocol: Document 10/12/20 15:15 AW (Rec: 10/12/20 15:13 AW [id number]) OP-PT Subjective Patient Comments Patient Comments Pt reports symptoms are stable - not better or worse. Patient Reported Progress Same PT-OP-F Manual Assessment Start: 10/05/20 15:08 Freq: Status: Active Protocol: Document 10/06/20 10:30 AW (Rec: 10/06/20 16:59 AW [email or web address]) Manual Assessments Soft Tissue Assessment Soft Tissue Mobility Assessment Pt has increased tone throughout bilateral upper traps but more significantly on the right side. She has well-healed scars on the both anterior shoulders with no appreciable adhesions. There is atrophy along the surgical scar correlating with pec major on the right side. Joint Mobility Assessment Joint Mobility Assessment Pt has decreased posterior GH glide on the right compared with the left. PT-OP-H Neuro Start: 10/05/20 15:08 Freq: Status: Active Protocol: Document 10/06/20 10:30 AW (Rec: 10/06/20 16:59 AW [email or web address]) Sensation Evaluation Gross Sensation Gross Sensation WNL Deep Tendon Reflex & Clonus Assessment Deep Tendon Reflex Bilateral Tricep Deep Tendon Reflex 1+ Diminished Bilateral Bicep Deep Tendon Reflex 2+ Normal PT-OP-J Posture/Palpation/Skin Start: 10/05/20 15:08 Freq: Status: Active Protocol: Document 10/06/20 10:30 AW (Rec: 10/06/20 16:59 AW [email or web address]) Posture Evaluation Comments Posture Comments Pt has forward head and abducted scapulae. She has significant dowager's hump with limited extension in upper thoracic spine. Palpation Assessment Location right shoulder Palpation Details TTP along well-healed scar. Pt reports the sensitivity runs deep. PT-OP-K Range of Motion Start: 10/05/20 15:08 Freq: Status: Active Protocol: Document 10/06/20 10:30 AW (Rec: 10/06/20 16:59 AW [email or web address]) Cervical Spine Range of Motion Cervical Spine Active Degrees Testing Position Sitting Flexion 44 Extension 45 Rotation Left 45 Rotation Right 45 Lateral Flexion Left 30 Lateral Flexion Right 28 Comments All cervical ROM WNL Shoulder Goniometric Range of Motion Shoulder Right Active Testing Position Sitting Flexion 145 Extension 55 Abduction 146 External Rotation at 90 degrees 95 Abduction Internal Rotation Behind Back (text) right back pocket Left Active Testing Position Sitting Flexion 155 Extension 70 Abduction 155 Internal Rotation Behind Back (text) L1 Shoulder ROM Limitations Shoulder ROM Limitations Pain Elbow/Forearm Range of Motion Elbow/Forearm ROM Limitations Comments WNL PT-OP-M Strength Start: 10/05/20 15:08 Freq: Status: Active Protocol: Document 10/06/20 10:30 AW (Rec: 10/06/20 16:59 AW [email or web address]) Scapula Strength Scapula Manual Muscle Testing bilateral Elevation (C4) 5 Normal Adduction 4 Good Abduction 4+ Good+ Depression 4 Good Shoulder Strength Shoulder Manual Muscle Testing Right Flexion 4 Good Extension 4 Good Abduction (C5) 4 Good External Rotation 4 Good Internal Rotation 4 Good Comments Flexion, abduction, IR, and extension all painful. Left Flexion 4+ Good+ Extension 4+ Good+ Abduction (C5) 4+ Good+ External Rotation 4+ Good+ Internal Rotation 4+ Good+ PT-OP-Q Treatments Start: 10/05/20 15:08 Freq: Status: Active Protocol: Document 10/12/20 15:15 AW (Rec: 10/12/20 15:13 AW [email or web address]) Cardio Equipment Upper Body Ergometer (UBE) Duration (Minutes) 3 RPM 60 Height 1.5 Therapeutic Exercises Supine Exercises AAROM GH flexion Supine Exercise Name AAROM GH flexion Side right Equipment Used dowel Reps/Minutes 10 x 2 Comments cued pain free range Sitting Exercises scapular retraction Sitting Exercise Name scapular retraction Side bilateral Reps/Minutes 5 SH x 10 Comments reviewed for HEP Standing Exercises isometric IR Standing Exercise Name isometric IR Side bilateral Equipment Used doorframe Reps/Minutes 5 SH x 10 Comments with instruction for 25-50% power Manual Therapy Treatment Soft Tissue Mobilization pecs Body Location suboccipitals, UT, pec major, subscap insertion Mobilization Type Sustained Pressure,Trigger Point Release Intensity/Depth Moderate Body Position Supine Joint Mobilizations GH Joint GH Direction inferior, posterior Grade II Body Position Hooklying Reps/Duration 12 min Comments for novel sensory input and mild restriction; with long axis distraction; with PROM IR /ER/abduction Self-Care/Home Management Treatment Education Patient Education Home Exercise Program Activities Self-Care/Home Management Activities Instruction in 25-50% power and to continue only if not painful. PT-OP-R Modalities Start: 10/05/20 15:08 Freq: Status: Active Protocol: Document 10/12/20 15:15 AW (Rec: 10/12/20 16:27 AW [email or web address]) Hot Pack/Cold Pack Treatment Cold Pack Location R shoulder Patient Position Sitting Treatment Duration (minutes) 10 Patient Tolerance Good PT-OP-T Assessment and Plan Start: 10/05/20 15:08 Freq: Status: Active Protocol: Document 10/12/20 15:15 AW (Rec: 10/12/20 16:31 AW [email or web address]) Physical Therapy Assessment Goals Three Impairment strength Short Term Goal (STG) Pt will improve right GH flexion and abduction strength to 4+/5. STG Duration 6 weeks - 11/17/20 Shelter Goal (LTG) Pt will lift 4WW into her trunk without increase in baseline pain. LTG Duration 12 weeks - 12/29/20 Two Impairment ROM Shelter Goal (LTG) Pt will improve right GH flexion and abduction to at least 155 degrees for improved ability wash her hair without pain. LTG Duration 12 weeks - 12/29/20 One Impairment lacks HEP Short Term Goal (STG) Pt will be independent with HEP to support therapy services provided in clinic. STG Duration 4 weeks - 11/03/20 Assessment Summary Assessment Treament focused on HEP review and manual therapy for pain management. Pt requires reminders for appropriate intensity with exercise as she tends to overdo. Physical Therapy Plan Frequency and Duration Frequency of Treatment 2x/Week Duration of Treatment 12 weeks Plan of Care Start Date 10/06/20 Plan of Care End Date 12/29/20 Therapeutic Interventions Therapeutic Interventions Home Exercise Program,Joint Mobilizations,Manual Therapy, Neuromuscular Re-education, Patient/Caregiver Education, Self-Care/Home Management, Sensory Integration,Soft Tissue Mobilization,Taping, Therapeutic Activities, Therapeutic Exercises Modalities Cold Pack/Ice Massage,Electric Stimulation,Hot Packs Next Visit Focus/Plan Next Note Type Treatment Note Next Visit Plan manual therapy for pain, continue AROM, AAROM, gentle isometric strengthening
--- NOTE | 2020-10-19 17:13 | PT.OTN ---
Current Diagnoses Abnormal posture (10/19/20) Presence of right artificial shoulder joint (10/19/20) Physical Therapy Treatment Note PT-OP-A Visit Information Start: 10/05/20 15:08 Freq: Status: Active Protocol: Document 10/19/20 17:00 AW (Rec: 10/19/20 17:13 AW [email or web address]) Out-Patient Physical Therapy Visit Information Visit Information Visit Type Treatment Note Visit Start Time 16:03 Visit Stop Time 16:59 Total Visit Minutes 56 Visit Number 3 Number of OVERWEAVER Visits 0 Evaluation Information Evaluation Date 10/06/20 PT-OP-B Current Condition Start: 10/05/20 15:08 Freq: Status: Active Protocol: Document 10/06/20 10:30 AW (Rec: 10/06/20 08:56 AW [email or web address]) Current Condition History of Current Condition Onset Date three months Current Complaints worsening R shoulder pain s/p R TSA History of Current Condition Pt had L TSA 12 years ago and R TSA on October 21, 2019 at . Both are anatomic arthroplasties. She rehabbed herself following R TSA to the point of functional range of motion but she has been having right anterior shoulder pain (alternately sharp, burning, throbbing) for about three months now. She describes the pain as constant like a toothache. She uses tylenol, heat, and cold to take edge off. She also has intermittent neck pain, tension headaches, and migraines but they are largely resolved at this time. She has history of BPPV for which she was treated at this clinic . She still has dizziness when leaning forward and with some bed mobility but states it does not interfere with her daily function if she takes the time to let symptoms resolve. Pt endorses escalating depression and anxiety which are exacerbated by family stress associated with caring for her 97 yo mother (at [employer]). P regularly lifts her mother's 4WW into her car trunk. Prior Treatments and Tests Pt saw ANUM Little at [facility] two weeks ago who thinks possible partial tear subscapularis. Recommends no resistance training in initial phase of rehab. x-ray R shoulder - 2 weeks ago - implant looks good, no loose screws X-ray 09/16/19: IMPRESSION: Multilevel cervical spondylosis most pronounced at C5-C6 and C6-C7. Diffuse facet arthropathy. Straightening of the normal lordotic curvature. Future Testing and Treatments Planned None identified. 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 Personal Factors Other Personal Factors That May Effect (-) depression and anxiety Therapy/Recovery (+) positive association with movement (+) good coping skills and awareness of stressors PT-OP-C Subjective Start: 10/05/20 15:08 Freq: Status: Active Protocol: Document 10/19/20 17:00 AW (Rec: 10/19/20 17:13 AW [email or web address]) OP-PT Subjective Patient Comments Patient Comments Pt reports improved exercise tolerance with reduction in intensity. Symptoms largely unchanged. She feels she has appropriately modified her activity. Patient Reported Progress Same PT-OP-F Manual Assessment Start: 10/05/20 15:08 Freq: Status: Active Protocol: Document 10/06/20 10:30 AW (Rec: 10/06/20 16:59 AW [email or web address]) Manual Assessments Soft Tissue Assessment Soft Tissue Mobility Assessment Pt has increased tone throughout bilateral upper traps but more significantly on the right side. She has well-healed scars on the both anterior shoulders with no appreciable adhesions. There is atrophy along the surgical scar correlating with pec major on the right side. Joint Mobility Assessment Joint Mobility Assessment Pt has decreased posterior GH glide on the right compared with the left. PT-OP-H Neuro Start: 10/05/20 15:08 Freq: Status: Active Protocol: Document 10/06/20 10:30 AW (Rec: 10/06/20 16:59 AW [email or web address]) Sensation Evaluation Gross Sensation Gross Sensation WNL Deep Tendon Reflex & Clonus Assessment Deep Tendon Reflex Bilateral Tricep Deep Tendon Reflex 1+ Diminished Bilateral Bicep Deep Tendon Reflex 2+ Normal PT-OP-J Posture/Palpation/Skin Start: 10/05/20 15:08 Freq: Status: Active Protocol: Document 10/06/20 10:30 AW (Rec: 10/06/20 16:59 AW [email or web address]) Posture Evaluation Comments Posture Comments Pt has forward head and abducted scapulae. She has significant dowager's hump with limited extension in upper thoracic spine. Palpation Assessment Location right shoulder Palpation Details TTP along well-healed scar. Pt reports the sensitivity runs deep. PT-OP-K Range of Motion Start: 10/05/20 15:08 Freq: Status: Active Protocol: Document 10/06/20 10:30 AW (Rec: 10/06/20 16:59 AW [email or web address]) Cervical Spine Range of Motion Cervical Spine Active Degrees Testing Position Sitting Flexion 44 Extension 45 Rotation Left 45 Rotation Right 45 Lateral Flexion Left 30 Lateral Flexion Right 28 Comments All cervical ROM WNL Shoulder Goniometric Range of Motion Shoulder Right Active Testing Position Sitting Flexion 145 Extension 55 Abduction 146 External Rotation at 90 degrees 95 Abduction Internal Rotation Behind Back (text) right back pocket Left Active Testing Position Sitting Flexion 155 Extension 70 Abduction 155 Internal Rotation Behind Back (text) L1 Shoulder ROM Limitations Shoulder ROM Limitations Pain Elbow/Forearm Range of Motion Elbow/Forearm ROM Limitations Comments WNL PT-OP-M Strength Start: 10/05/20 15:08 Freq: Status: Active Protocol: Document 10/06/20 10:30 AW (Rec: 10/06/20 16:59 AW [email or web address]) Scapula Strength Scapula Manual Muscle Testing bilateral Elevation (C4) 5 Normal Adduction 4 Good Abduction 4+ Good+ Depression 4 Good Shoulder Strength Shoulder Manual Muscle Testing Right Flexion 4 Good Extension 4 Good Abduction (C5) 4 Good External Rotation 4 Good Internal Rotation 4 Good Comments Flexion, abduction, IR, and extension all painful. Left Flexion 4+ Good+ Extension 4+ Good+ Abduction (C5) 4+ Good+ External Rotation 4+ Good+ Internal Rotation 4+ Good+ PT-OP-Q Treatments Start: 10/05/20 15:08 Freq: Status: Active Protocol: Document 10/19/20 17:00 AW (Rec: 10/19/20 17:13 AW [email or web address]) Therapeutic Exercises Supine Exercises supine scap retraction/posture press Supine Exercise Name supine scap retraction/posture press Side bilateral Reps/Minutes 5SH x 10 Comments cued ppt Sitting Exercises closed chain ER Sitting Exercise Name closed chain ER Side right Reps/Minutes x 8 Comments cued for small excursion pulleys Sitting Exercise Name pulleys Side bilateral Reps/Minutes 4 min flexion slide Sitting Exercise Name fwd flexion slide Side right Equipment Used table, towel Reps/Minutes x 8 Comments cued scapular posture scapular retraction Sitting Exercise Name scapular retraction Side bilateral Reps/Minutes 5 SH x 10 Comments with posterior GH glide Standing Exercises pendulum Standing Exercise Name pendulum Side right Equipment Used chair for support Reps/Minutes 30 sec x 3 Comments primarily flex/ext and small circles Manual Therapy Treatment Soft Tissue Mobilization pecs Body Location suboccipitals, UT, pec major, subscap insertion Mobilization Type Sustained Pressure,Trigger Point Release Intensity/Depth Moderate Body Position Supine Joint Mobilizations GH Joint GH Direction inferior, posterior Grade II Body Position Hooklying Reps/Duration 10 min Comments for novel sensory input and mild restriction; with long axis distraction; with PROM IR /ER/abduction Self-Care/Home Management Treatment Education Patient Education Home Exercise Program Activities Self-Care/Home Management Activities added supine posture press, pendulum PT-OP-R Modalities Start: 10/05/20 15:08 Freq: Status: Active Protocol: Document 10/19/20 17:00 AW (Rec: 10/19/20 17:13 AW [email or web address]) Hot Pack/Cold Pack Treatment Cold Pack Location R shoulder Patient Position Sitting Treatment Duration (minutes) 10 Patient Tolerance Good PT-OP-T Assessment and Plan Start: 10/05/20 15:08 Freq: Status: Active Protocol: Document 10/19/20 17:00 AW (Rec: 10/19/20 17:13 AW [email or web address]) Physical Therapy Assessment Goals Three Impairment strength Short Term Goal (STG) Pt will improve right GH flexion and abduction strength to 4+/5. STG Duration 6 weeks - 11/17/20 Skilled Nursing Goal (LTG) Pt will lift 4WW into her trunk without increase in baseline pain. LTG Duration 12 weeks - 12/29/20 Two Impairment ROM Skilled Nursing Goal (LTG) Pt will improve right GH flexion and abduction to at least 155 degrees for improved ability wash her hair without pain. LTG Duration 12 weeks - 12/29/20 One Impairment lacks HEP Short Term Goal (STG) Pt will be independent with HEP to support therapy services provided in clinic. STG Duration 4 weeks - 11/03/20 Assessment Summary Assessment Treatment focused on manual therapy for pain management and ther ex for postural awareness. Pt tolerated well with no complaint of increased pain. Physical Therapy Plan Frequency and Duration Frequency of Treatment 2x/Week Duration of Treatment 12 weeks Plan of Care Start Date 10/06/20 Plan of Care End Date 12/29/20 Therapeutic Interventions Therapeutic Interventions Home Exercise Program,Joint Mobilizations,Manual Therapy, Neuromuscular Re-education, Patient/Caregiver Education, Self-Care/Home Management, Sensory Integration,Soft Tissue Mobilization,Taping, Therapeutic Activities, Therapeutic Exercises Modalities Cold Pack/Ice Massage,Electric Stimulation,Hot Packs Next Visit Focus/Plan Next Note Type Treatment Note Next Visit Plan manual therapy for pain, continue AROM, AAROM, gentle isometric strengthening
--- NOTE | 2020-10-27 12:17 | PT.OTN ---
Current Diagnoses Abnormal posture (10/27/20) Presence of right artificial shoulder joint (10/27/20) Physical Therapy Treatment Note PT-OP-A Visit Information Start: 10/05/20 15:08 Freq: Status: Active Protocol: Document 10/27/20 10:30 AW (Rec: 10/27/20 10:36 AW [id number]) Out-Patient Physical Therapy Visit Information Visit Information Visit Type Treatment Note Visit Start Time 09:48 Visit Stop Time 10:45 Total Visit Minutes 57 Visit Number 4 Number of CUSTOMER EXPERIENCE ANALYST Visits 0 Evaluation Information Evaluation Date 10/06/20 PT-OP-B Current Condition Start: 10/05/20 15:08 Freq: Status: Active Protocol: Document 10/06/20 10:30 AW (Rec: 10/06/20 08:56 AW [email or web address]) Current Condition History of Current Condition Onset Date three months Current Complaints worsening R shoulder pain s/p R TSA History of Current Condition Pt had L TSA 12 years ago and R TSA on October 21, 2019 at . Both are anatomic arthroplasties. She rehabbed herself following R TSA to the point of functional range of motion but she has been having right anterior shoulder pain (alternately sharp, burning, throbbing) for about three months now. She describes the pain as constant like a toothache. She uses tylenol, heat, and cold to take edge off. She also has intermittent neck pain, tension headaches, and migraines but they are largely resolved at this time. She has history of BPPV for which she was treated at this clinic . She still has dizziness when leaning forward and with some bed mobility but states it does not interfere with her daily function if she takes the time to let symptoms resolve. Pt endorses escalating depression and anxiety which are exacerbated by family stress associated with caring for her 97 yo mother (at [employer]). P regularly lifts her mother's 4WW into her car trunk. Prior Treatments and Tests Pt saw ANUM Little at [facility] two weeks ago who thinks possible partial tear subscapularis. Recommends no resistance training in initial phase of rehab. x-ray R shoulder - 2 weeks ago - implant looks good, no loose screws X-ray 09/16/19: IMPRESSION: Multilevel cervical spondylosis most pronounced at C5-C6 and C6-C7. Diffuse facet arthropathy. Straightening of the normal lordotic curvature. Future Testing and Treatments Planned None identified. 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 Personal Factors Other Personal Factors That May Effect (-) depression and anxiety Therapy/Recovery (+) positive association with movement (+) good coping skills and awareness of stressors PT-OP-C Subjective Start: 10/05/20 15:08 Freq: Status: Active Protocol: Document 10/27/20 10:30 AW (Rec: 10/27/20 10:36 AW [id number]) OP-PT Subjective Patient Comments Patient Comments Symptoms remain unchanged even though pt states she has been successful in limiting her lifting and loaded OH movements Patient Reported Progress Same PT-OP-F Manual Assessment Start: 10/05/20 15:08 Freq: Status: Active Protocol: Document 10/06/20 10:30 AW (Rec: 10/06/20 16:59 AW [email or web address]) Manual Assessments Soft Tissue Assessment Soft Tissue Mobility Assessment Pt has increased tone throughout bilateral upper traps but more significantly on the right side. She has well-healed scars on the both anterior shoulders with no appreciable adhesions. There is atrophy along the surgical scar correlating with pec major on the right side. Joint Mobility Assessment Joint Mobility Assessment Pt has decreased posterior GH glide on the right compared with the left. PT-OP-H Neuro Start: 10/05/20 15:08 Freq: Status: Active Protocol: Document 10/06/20 10:30 AW (Rec: 10/06/20 16:59 AW [email or web address]) Sensation Evaluation Gross Sensation Gross Sensation WNL Deep Tendon Reflex & Clonus Assessment Deep Tendon Reflex Bilateral Tricep Deep Tendon Reflex 1+ Diminished Bilateral Bicep Deep Tendon Reflex 2+ Normal PT-OP-J Posture/Palpation/Skin Start: 10/05/20 15:08 Freq: Status: Active Protocol: Document 10/06/20 10:30 AW (Rec: 10/06/20 16:59 AW [email or web address]) Posture Evaluation Comments Posture Comments Pt has forward head and abducted scapulae. She has significant dowager's hump with limited extension in upper thoracic spine. Palpation Assessment Location right shoulder Palpation Details TTP along well-healed scar. Pt reports the sensitivity runs deep. PT-OP-K Range of Motion Start: 10/05/20 15:08 Freq: Status: Active Protocol: Document 10/06/20 10:30 AW (Rec: 10/06/20 16:59 AW [email or web address]) Cervical Spine Range of Motion Cervical Spine Active Degrees Testing Position Sitting Flexion 44 Extension 45 Rotation Left 45 Rotation Right 45 Lateral Flexion Left 30 Lateral Flexion Right 28 Comments All cervical ROM WNL Shoulder Goniometric Range of Motion Shoulder Right Active Testing Position Sitting Flexion 145 Extension 55 Abduction 146 External Rotation at 90 degrees 95 Abduction Internal Rotation Behind Back (text) right back pocket Left Active Testing Position Sitting Flexion 155 Extension 70 Abduction 155 Internal Rotation Behind Back (text) L1 Shoulder ROM Limitations Shoulder ROM Limitations Pain Elbow/Forearm Range of Motion Elbow/Forearm ROM Limitations Comments WNL PT-OP-M Strength Start: 10/05/20 15:08 Freq: Status: Active Protocol: Document 10/06/20 10:30 AW (Rec: 10/06/20 16:59 AW [email or web address]) Scapula Strength Scapula Manual Muscle Testing bilateral Elevation (C4) 5 Normal Adduction 4 Good Abduction 4+ Good+ Depression 4 Good Shoulder Strength Shoulder Manual Muscle Testing Right Flexion 4 Good Extension 4 Good Abduction (C5) 4 Good External Rotation 4 Good Internal Rotation 4 Good Comments Flexion, abduction, IR, and extension all painful. Left Flexion 4+ Good+ Extension 4+ Good+ Abduction (C5) 4+ Good+ External Rotation 4+ Good+ Internal Rotation 4+ Good+ PT-OP-Q Treatments Start: 10/05/20 15:08 Freq: Status: Active Protocol: Document 10/27/20 10:30 AW (Rec: 10/27/20 10:36 AW [id number]) Therapeutic Exercises Supine Exercises thoracic extension Supine Exercise Name thoracic extension Equipment Used blue half foam roll Comments added AAROM flexion for increased extension AAROM GH flexion Supine Exercise Name AAROM GH flexion Side right Equipment Used dowel Reps/Minutes 10 x 2 Comments good range without pain Sitting Exercises AAROM ER Sitting Exercise Name AAROM ER Side right Equipment Used dowel Reps/Minutes 10 x 2 Comments cued minimal excursion, pain free range scapular retraction Sitting Exercise Name scapular retraction Side bilateral Reps/Minutes 5 SH x 10 Comments with posterior GH glide Standing Exercises pendulum Standing Exercise Name pendulum Side right Equipment Used chair for support Reps/Minutes 30 sec x 3 Comments primarily flex/ext and small circles Manual Therapy Treatment Soft Tissue Mobilization pecs Body Location suboccipitals, UT, pec major, subscap Mobilization Type Sustained Pressure,Trigger Point Release Intensity/Depth Moderate Body Position Supine Self-Care/Home Management Treatment Education Patient Education Home Exercise Program Activities Self-Care/Home Management Activities Counseled pt to remove isometrics and pulleys from HEP at this time and to focus on seated scap retraction, pendulums, and AAROM ER with dowel in pain free range. PT-OP-R Modalities Start: 10/05/20 15:08 Freq: Status: Active Protocol: Document 10/27/20 10:30 AW (Rec: 10/27/20 10:36 AW [id number]) Electric Stimulation Electric Stimulation Interferential Current (IFC) Body Location R shoulder Duration (Minutes) 15 Intensity 8 Target/Sweep Target Combined With Heat/Cold Cold Pack Comments tolerated well PT-OP-T Assessment and Plan Start: 10/05/20 15:08 Freq: Status: Active Protocol: Document 10/27/20 10:30 AW (Rec: 10/27/20 12:16 AW [email or web address]) Physical Therapy Assessment Goals Three Impairment strength Short Term Goal (STG) Pt will improve right GH flexion and abduction strength to 4+/5. STG Duration 6 weeks - 11/17/20 Pe[place]ter Goal (LTG) Pt will lift 4WW into her trunk without increase in baseline pain. LTG Duration 12 weeks - 12/29/20 Two Impairment ROM Correction Goal (LTG) Pt will improve right GH flexion and abduction to at least 155 degrees for improved ability wash her hair without pain. LTG Duration 12 weeks - 12/29/20 One Impairment lacks HEP Short Term Goal (STG) Pt will be independent with HEP to support therapy services provided in clinic. STG Duration 4 weeks - 11/03/20 Assessment Summary Assessment Pt is not tolerating isometric strengthening at this time and continues to require max cues to work AAROM in pain free range only. Will continue conservatively with AAROM. Pt lacks thoracic extension T1- T4 and would benefit from continued focus on same. Physical Therapy Plan Frequency and Duration Frequency of Treatment 2x/Week Duration of Treatment 12 weeks Plan of Care Start Date 10/06/20 Plan of Care End Date 12/29/20 Therapeutic Interventions Therapeutic Interventions Home Exercise Program,Joint Mobilizations,Manual Therapy, Neuromuscular Re-education, Patient/Caregiver Education, Self-Care/Home Management, Sensory Integration,Soft Tissue Mobilization,Taping, Therapeutic Activities, Therapeutic Exercises Modalities Cold Pack/Ice Massage,Electric Stimulation,Hot Packs Next Visit Focus/Plan Next Note Type Treatment Note Next Visit Plan manual therapy for pain, continue AROM, AAROM, thoracic extension
--- NOTE | 2020-11-03 12:12 | PT.OTN ---
Current Diagnoses Abnormal posture (11/03/20) Presence of right artificial shoulder joint (11/03/20) Physical Therapy Treatment Note PT-OP-A Visit Information Start: 10/05/20 15:08 Freq: Status: Active Protocol: Document 11/03/20 11:23 AMH (Rec: 11/03/20 11:31 AMH [id number]) Out-Patient Physical Therapy Visit Information Visit Information Visit Type Treatment Note Visit Start Time 11:15 Visit Stop Time 12:00 Total Visit Minutes 45 Visit Number 5 PT-OP-B Current Condition Start: 10/05/20 15:08 Freq: Status: Active Protocol: Document 10/06/20 10:30 AW (Rec: 10/06/20 08:56 AW [email or web address]) Current Condition History of Current Condition Onset Date three months Current Complaints worsening R shoulder pain s/p R TSA History of Current Condition Pt had L TSA 12 years ago and R TSA on October 21, 2019 at . Both are anatomic arthroplasties. She rehabbed herself following R TSA to the point of functional range of motion but she has been having right anterior shoulder pain (alternately sharp, burning, throbbing) for about three months now. She describes the pain as constant like a toothache. She uses tylenol, heat, and cold to take edge off. She also has intermittent neck pain, tension headaches, and migraines but they are largely resolved at this time. She has history of BPPV for which she was treated at this clinic . She still has dizziness when leaning forward and with some bed mobility but states it does not interfere with her daily function if she takes the time to let symptoms resolve. Pt endorses escalating depression and anxiety which are exacerbated by family stress associated with caring for her 97 yo mother (at [employer]). P regularly lifts her mother's 4WW into her car trunk. Prior Treatments and Tests Pt saw ANUM Little at [facility] two weeks ago who thinks possible partial tear subscapularis. Recommends no resistance training in initial phase of rehab. x-ray R shoulder - 2 weeks ago - implant looks good, no loose screws X-ray 09/16/19: IMPRESSION: Multilevel cervical spondylosis most pronounced at C5-C6 and C6-C7. Diffuse facet arthropathy. Straightening of the normal lordotic curvature. Future Testing and Treatments Planned None identified. 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 Personal Factors Other Personal Factors That May Effect (-) depression and anxiety Therapy/Recovery (+) positive association with movement (+) good coping skills and awareness of stressors PT-OP-C Subjective Start: 10/05/20 15:08 Freq: Status: Active Protocol: Document 11/03/20 11:23 AMH (Rec: 11/03/20 11:31 AMH [id number]) OP-PT Subjective Patient Comments Patient Comments pt reports she is still in a lot of pain and she feels as if her pain is getting worse. On some movements when she goes to move she states her shoulder feels like it might dislocate. PT reports her shoulder really never gor better after her shoulder replacement September 2019. She feels it is soft tissue related. PT-OP-F Manual Assessment Start: 10/05/20 15:08 Freq: Status: Active Protocol: Document 10/06/20 10:30 AW (Rec: 10/06/20 16:59 AW [email or web address]) Manual Assessments Soft Tissue Assessment Soft Tissue Mobility Assessment Pt has increased tone throughout bilateral upper traps but more significantly on the right side. She has well-healed scars on the both anterior shoulders with no appreciable adhesions. There is atrophy along the surgical scar correlating with pec major on the right side. Joint Mobility Assessment Joint Mobility Assessment Pt has decreased posterior GH glide on the right compared with the left. PT-OP-H Neuro Start: 10/05/20 15:08 Freq: Status: Active Protocol: Document 10/06/20 10:30 AW (Rec: 10/06/20 16:59 AW [email or web address]) Sensation Evaluation Gross Sensation Gross Sensation WNL Deep Tendon Reflex & Clonus Assessment Deep Tendon Reflex Bilateral Tricep Deep Tendon Reflex 1+ Diminished Bilateral Bicep Deep Tendon Reflex 2+ Normal PT-OP-J Posture/Palpation/Skin Start: 10/05/20 15:08 Freq: Status: Active Protocol: Document 10/06/20 10:30 AW (Rec: 10/06/20 16:59 AW [email or web address]) Posture Evaluation Comments Posture Comments Pt has forward head and abducted scapulae. She has significant dowager's hump with limited extension in upper thoracic spine. Palpation Assessment Location right shoulder Palpation Details TTP along well-healed scar. Pt reports the sensitivity runs deep. PT-OP-K Range of Motion Start: 10/05/20 15:08 Freq: Status: Active Protocol: Document 10/06/20 10:30 AW (Rec: 10/06/20 16:59 AW [email or web address]) Cervical Spine Range of Motion Cervical Spine Active Degrees Testing Position Sitting Flexion 44 Extension 45 Rotation Left 45 Rotation Right 45 Lateral Flexion Left 30 Lateral Flexion Right 28 Comments All cervical ROM WNL Shoulder Goniometric Range of Motion Shoulder Right Active Testing Position Sitting Flexion 145 Extension 55 Abduction 146 External Rotation at 90 degrees 95 Abduction Internal Rotation Behind Back (text) right back pocket Left Active Testing Position Sitting Flexion 155 Extension 70 Abduction 155 Internal Rotation Behind Back (text) L1 Shoulder ROM Limitations Shoulder ROM Limitations Pain Elbow/Forearm Range of Motion Elbow/Forearm ROM Limitations Comments WNL PT-OP-M Strength Start: 10/05/20 15:08 Freq: Status: Active Protocol: Document 10/06/20 10:30 AW (Rec: 10/06/20 16:59 AW [email or web address]) Scapula Strength Scapula Manual Muscle Testing bilateral Elevation (C4) 5 Normal Adduction 4 Good Abduction 4+ Good+ Depression 4 Good Shoulder Strength Shoulder Manual Muscle Testing Right Flexion 4 Good Extension 4 Good Abduction (C5) 4 Good External Rotation 4 Good Internal Rotation 4 Good Comments Flexion, abduction, IR, and extension all painful. Left Flexion 4+ Good+ Extension 4+ Good+ Abduction (C5) 4+ Good+ External Rotation 4+ Good+ Internal Rotation 4+ Good+ PT-OP-Q Treatments Start: 10/05/20 15:08 Freq: Status: Active Protocol: Document 11/03/20 11:15 AMH (Rec: 11/03/20 12:11 AMH [id number]) Therapeutic Exercises Supine Exercises 1/2 foam roll stretch for pec minor Comments pt had good tolerance for this and plans on trying at home with yoga mat Manual Therapy Treatment Soft Tissue Mobilization SCM Mobilization Type Sustained Pressure,Trigger Point Release Intensity/Depth Moderate Body Position Supine Comments R SCM is more pain sensitive pecs Body Location suboccipitals, UT, pec major, subscap Mobilization Type Sustained Pressure,Trigger Point Release Intensity/Depth Moderate Body Position Supine Manual Techniques manual upper trap and scalene stretches Comments right sided nerve pain with active stretching of the scalenes on the right PT-OP-R Modalities Start: 10/05/20 15:08 Freq: Status: Active Protocol: Document 10/27/20 10:30 AW (Rec: 10/27/20 10:36 AW [id number]) Electric Stimulation Electric Stimulation Interferential Current (IFC) Body Location R shoulder Duration (Minutes) 15 Intensity 8 Target/Sweep Target Combined With Heat/Cold Cold Pack Comments tolerated well PT-OP-T Assessment and Plan Start: 10/05/20 15:08 Freq: Status: Active Protocol: Document 11/03/20 11:15 AMH (Rec: 11/03/20 12:11 AMH [id number]) Physical Therapy Assessment Assessment Summary Assessment pt doesn't appear to be tolerating exercises, she mentioned that she had to use her right shoulder soon after her shoulder replacement to help take care of her mother so it never healed like her left side did. She is very guarded and tight in pec minor and right cervical spine musculature. SHe was able to tolerate gentle pec minor stretch folowing manual work today. Pt has a call in to her MD for further follow up and she will letus know if sheplans to keep her last visit or discontinue PT at this time. Physical Therapy Plan Frequency and Duration Frequency of Treatment 2x/Week Duration of Treatment 12 weeks Plan of Care Start Date 10/06/20 Plan of Care End Date 12/29/20 Therapeutic Interventions Therapeutic Interventions Home Exercise Program,Joint Mobilizations,Manual Therapy, Neuromuscular Re-education, Patient/Caregiver Education, Self-Care/Home Management, Sensory Integration,Soft Tissue Mobilization,Taping, Therapeutic Activities, Therapeutic Exercises Modalities Cold Pack/Ice Massage,Electric Stimulation,Hot Packs Next Visit Focus/Plan Next Note Type Treatment Note Next Visit Plan manual therapy for pain, continue AROM, AAROM, thoracic extension
--- NOTE | 2020-11-10 14:04 | PT.OPDS ---
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 Primary Care Provider Specialty: Family Practice Address: [address] [place] [address], [facility] [place], [address] Email: [email or web address] Reyes PA-C Attending Provider Non-Staff Referring Provider Specialty: Medical Address: [address] [place] [address], [phone] Fax: Email: Visit Number Visit Number 6 Discharge Summary PT-OP-B Current Condition Start: 10/05/20 15:08 Freq: Status: Active Protocol: Document 10/06/20 10:30 AW (Rec: 10/06/20 08:56 AW [email or web address]) Current Condition History of Current Condition Onset Date three months Current Complaints worsening R shoulder pain s/p R TSA History of Current Condition Pt had L TSA 12 years ago and R TSA on October 21, 2019 at . Both are anatomic arthroplasties. She rehabbed herself following R TSA to the point of functional range of motion but she has been having right anterior shoulder pain (alternately sharp, burning, throbbing) for about three months now. She describes the pain as constant like a toothache. She uses tylenol, heat, and cold to take edge off. She also has intermittent neck pain, tension headaches, and migraines but they are largely resolved at this time. She has history of BPPV for which she was treated at this clinic . She still has dizziness when leaning forward and with some bed mobility but states it does not interfere with her daily function if she takes the time to let symptoms resolve. Pt endorses escalating depression and anxiety which are exacerbated by family stress associated with caring for her 97 yo mother (at [employer]). P regularly lifts her mother's 4WW into her car trunk. Prior Treatments and Tests Pt saw ANUM Little at [facility] two weeks ago who thinks possible partial tear subscapularis. Recommends no resistance training in initial phase of rehab. x-ray R shoulder - 2 weeks ago - implant looks good, no loose screws X-ray 09/16/19: IMPRESSION: Multilevel cervical spondylosis most pronounced at C5-C6 and C6-C7. Diffuse facet arthropathy. Straightening of the normal lordotic curvature. Future Testing and Treatments Planned None identified. 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 Personal Factors Other Personal Factors That May Effect (-) depression and anxiety Therapy/Recovery (+) positive association with movement (+) good coping skills and awareness of stressors PT-OP-C Subjective Start: 10/05/20 15:08 Freq: Status: Active Protocol: Document 11/10/20 13:46 AW (Rec: 11/10/20 13:58 AW [id number]) OP-PT Subjective Patient Comments Patient Comments Pt reports no improvement in symptoms with extreme activity modification and gentle ROM exercise. PT-OP-F Manual Assessment Start: 10/05/20 15:08 Freq: Status: Active Protocol: Document 10/06/20 10:30 AW (Rec: 10/06/20 16:59 AW [email or web address]) Manual Assessments Soft Tissue Assessment Soft Tissue Mobility Assessment Pt has increased tone throughout bilateral upper traps but more significantly on the right side. She has well-healed scars on the both anterior shoulders with no appreciable adhesions. There is atrophy along the surgical scar correlating with pec major on the right side. Joint Mobility Assessment Joint Mobility Assessment Pt has decreased posterior GH glide on the right compared with the left. PT-OP-H Neuro Start: 10/05/20 15:08 Freq: Status: Active Protocol: Document 10/06/20 10:30 AW (Rec: 10/06/20 16:59 AW [email or web address]) Sensation Evaluation Gross Sensation Gross Sensation WNL Deep Tendon Reflex & Clonus Assessment Deep Tendon Reflex Bilateral Tricep Deep Tendon Reflex 1+ Diminished Bilateral Bicep Deep Tendon Reflex 2+ Normal PT-OP-J Posture/Palpation/Skin Start: 10/05/20 15:08 Freq: Status: Active Protocol: Document 10/06/20 10:30 AW (Rec: 10/06/20 16:59 AW [email or web address]) Posture Evaluation Comments Posture Comments Pt has forward head and abducted scapulae. She has significant dowager's hump with limited extension in upper thoracic spine. Palpation Assessment Location right shoulder Palpation Details TTP along well-healed scar. Pt reports the sensitivity runs deep. PT-OP-K Range of Motion Start: 10/05/20 15:08 Freq: Status: Active Protocol: Document 10/06/20 10:30 AW (Rec: 10/06/20 16:59 AW [email or web address]) Cervical Spine Range of Motion Cervical Spine Active Degrees Testing Position Sitting Flexion 44 Extension 45 Rotation Left 45 Rotation Right 45 Lateral Flexion Left 30 Lateral Flexion Right 28 Comments All cervical ROM WNL Shoulder Goniometric Range of Motion Shoulder Right Active Testing Position Sitting Flexion 145 Extension 55 Abduction 146 External Rotation at 90 degrees 95 Abduction Internal Rotation Behind Back (text) right back pocket Left Active Testing Position Sitting Flexion 155 Extension 70 Abduction 155 Internal Rotation Behind Back (text) L1 Shoulder ROM Limitations Shoulder ROM Limitations Pain Elbow/Forearm Range of Motion Elbow/Forearm ROM Limitations Comments WNL PT-OP-M Strength Start: 10/05/20 15:08 Freq: Status: Active Protocol: Document 10/06/20 10:30 AW (Rec: 10/06/20 16:59 AW [email or web address]) Scapula Strength Scapula Manual Muscle Testing bilateral Elevation (C4) 5 Normal Adduction 4 Good Abduction 4+ Good+ Depression 4 Good Shoulder Strength Shoulder Manual Muscle Testing Right Flexion 4 Good Extension 4 Good Abduction (C5) 4 Good External Rotation 4 Good Internal Rotation 4 Good Comments Flexion, abduction, IR, and extension all painful. Left Flexion 4+ Good+ Extension 4+ Good+ Abduction (C5) 4+ Good+ External Rotation 4+ Good+ Internal Rotation 4+ Good+ PT-OP-T Assessment and Plan Start: 10/05/20 15:08 Freq: Status: Active Protocol: Document 11/10/20 13:46 AW (Rec: 11/10/20 14:04 AW [id number]) Physical Therapy Plan Discharge Physical Therapy Discharge Reasons Patient Request Discharge Comments Pt arrived for scheduled appointment but ended up discussing lack of progress. PT and pt agreed PT was not helpful at this time. Pt notes she returned to regular activity long before advisable following her R TSA which is likely cause of her current complaints. Pt referred back to surgeon for further assessment.
== END 2020-11-10 14:18 | disposition home or self-care (01) ==
LOC: PHYS 11:15
PROVIDERS: Family Provider Internal Medicine; PCP Internal Medicine; Referring Provider Physician Assistant; Visit Provider Physician Assistant
DX: Z96.611 Presence of right artificial shoulder joint (principal); R29.3 Abnormal posture
CPT/HCPCS: 97014; 97110; 97140; 97161; G0283

== ENCOUNTER → 2022-01-04 14:33 | Outpatient (CLI) | payer MEDICARE, SELFPAY ==
--- NOTE | 2022-01-04 14:40 | DI.RAD.S_ITS ---
PROCEDURE: XR KNEE LT 3V INDICATIONS: LEFT KNEE PAIN/SWELLING TECHNIQUE: 3 views of the knee were acquired. COMPARISON: None. FINDINGS: Bones: No acute fractures or dislocations. No suspicious bony lesions. There is moderate to severe narrowing of the medial femorotibial compartment joint space with subchondral sclerosis and marginal osteophyte formation. Marginal osteophytes are also seen at the lateral and anterior compartments. There is moderate narrowing of the patellofemoral joint space. And ossification at the superolateral aspect of the patella may be due to congenital variation or remote prior trauma. Soft tissues: Small joint effusion. Chondrocalcinosis is seen in the lateral femorotibial compartment. IMPRESSION: 1. 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 2. Chondrocalcinosis. Differential diagnosis includes but is not limited to CPPD, hyperparathyroidism, and hemochromatosis. 3. Small joint effusion. Dictated by: Jeffrey Pham M.D. on 01/04/2022 at 20:05 Approved by: Jeffrey Pham M.D. on 01/04/2022 at 20:07
== END ==
PROVIDERS: Family Provider Internal Medicine; PCP Internal Medicine; Referring Provider Internal Medicine; Visit Provider Internal Medicine
DX: M25.562 Pain in left knee (principal); M17.12 Unilateral primary osteoarthritis, left knee; M11.262 Other chondrocalcinosis, left knee; M25.40 Effusion, unspecified joint
CPT/HCPCS: 73562

== ENCOUNTER 2022-10-03 18:00 | Emergency (ER) | payer MEDICARE, SELFPAY ==
[2022-10-03 18:07] VITALS: BMI 22.4
--- NOTE | 2022-10-03 18:34 | ED_ITS ---
HPI - General Adult General Chief complaint: Toxicology Problem Stated complaint: SI Time Seen by Provider: 10/03/22 18:06 Source: patient, EMS and police Mode of arrival: EMS Limitations: no limitations History of Present Illness HPI narrative: Patient is a 72-year-old female who was brought in by EMS under a ISHAAN by police for evaluation of suicidal ideation and potentially overdosing on an unknown amount of medication. Initially report that the patient took a handful of Xanax however there could have been other medications as well. EMS was called by the patient's . The police were initially the ones who arrived to the house. Patient did not want to be brought to the emergency department. She eventually was convinced to come to the emergency department by the police and EMS. Here in the ER the patient states she is not suicidal. Not homicidal. She states she did take 3 Xanax pills. These were prescribed to her. She denied taking any other medications. She did smoke some marijuana this morning. Denies any alcohol use. Patient states that this morning she ?got my wits end? 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 Recently her also had a stroke which left him blind in 1 eye which makes his capability limited of taking care of the patient's mother. She stated that her mother recently spent 4 days in a respite bed and did have plans of her mother staying at this facility however for an unknown reason the patient's mother was denied long-term care. The patient's mother is also under the care of hospice. The patient states she is been trying to get a hold of the biofuels plant construction worker for the past several days but she is been out of the office for the past 4 days and has not been able to talk with anyone. She states that because of all of this she became very angry and anxious and felt like she could not handle the situation so she did take her Xanax this morning. Currently patient does not want to be here in the emergency department. She denied suicidal or homicidal ideation. States she does feel safe at home. She denies chest pain or shortness of breath or abdominal pain or nausea or vomiting. Related Data Home Medications Medication Instructions Recorded Confirmed acetaminophen 500 mg tablet 500 mg PO Q6H PRN Pain 06/10/18 06/12/22 (Tylenol Extra Strength) estradiol 0.1 mg/24 hr semiweekly 0.25 mg topical 2XW #0 ea 09/24/19 06/12/22 transdermal patch (Vivelle-Dot) levothyroxine 25 mcg tablet 50 mcg PO DAILY 09/10/20 06/12/22 cholecalciferol (vitamin D3) 125 125 mcg PO Q OTHER DAY 12/12/21 06/12/22 mcg (5,000 unit) capsule zinc acetate 50 mg (zinc) capsule 50 mg PO DAILY 12/12/21 06/12/22 Previous Rx's Medication Instructions Recorded doxazosin 2 mg tablet 8 mg PO BEDTIME #360 tabs 09/10/20 escitalopram oxalate 10 mg tablet 10 mg PO DAILY #90 tabs 06/12/22 clonazepam 0.5 mg tablet 0.5 mg PO BID PRN anxiety #15 tabs 09/04/22 Allergies Allergy/AdvReac Type Severity Reaction Status Date / Time erythromycin base Allergy Intermediate Nausea and Verified 06/12/22 13:18 [ERYTHROMYCIN BASE] Vomiting Penicillins [PENICILLINS] Allergy Unknown Verified 06/12/22 13:18 Review of Systems Review of Systems ROS Unobtainable: All systems reviewed & are unremarkable except as noted in HPI and below Patient History Medical History History of migraine Hypothyroid Maxillary sinusitis (~09/2016) Surgical History (Updated 04/22/19 @ 15:17 by Consuelo Levy RN) Hx of sinus surgery Social History Smoking Status: Never smoker Smoking Status: Never smoker Exam Initial Vital Signs Initial Vital Signs: Vital Signs Temperature 98.2 F 10/03/22 18:47 Pulse Rate 88 10/03/22 18:47 Respiratory Rate 20 10/03/22 18:47 Blood Pressure 173/82 H 10/03/22 18:47 Pulse Oximetry 96 10/03/22 18:47 Oxygen Delivery Method Room Air 10/03/22 18:47 Const General: No ill appearing HENMT Head: normal to inspection Resp Effort & Inspection: normal respiratory effort Cardio Rate: regular rate Skin General: no rashes or lesions noted Neuro Other: Alert and oriented x3 Extrem Other: No gross deformity Psych Other: Patient was angry however somewhat cooperative. Not suicidal. Not homicidal. Not tangential. Not clinically intoxicated. Course Orders Ordered: ED Orders 10/03/22 18:09 Acetaminophen Stat Complete Blood Count AUTO DIFF Stat Comprehensive Metabolic Panel Stat Ethanol (ETOH) Stat Lipase Stat Salicylate Stat 10/03/22 18:10 Magnesium Stat Thyroid Stimulating Hormone Stat Urine Drug Screen, Rapid Stat EKG-12 Lead Stat 10/03/22 18:11 Consult to [facility] - Talent Acquisition Assistant Stat Medical Decision Making Lab Data Lab results reviewed: Yes I reviewed the patient's lab results. 10/03/22 19:08 10/03/22 19:08 Labs: Lab Results 10/03/22 10/03/22 10/03/22 Range/Units 19:00 19:00 19:08 WBC 8.6 (4.5-11.0) X10^3/uL RBC 4.43 (4.0-5.2) X10^6/uL Hgb 13.8 (12.0-16.0) g/dL Hct 40.7 (36-46) % MCV 91.7 (80-100) fL MCH 31.2 (26-34) PG MCHC 34.0 (30-36) % RDW 13.5 (11.6-14.8) % Plt Count 208 (150-400) X10^3/uL Neut % (Auto) 69.1 (50-75) % Lymph % (Auto) 21.9 L (25-40) % Graham % (Auto) 6.8 (3-14) % Eos % (Auto) 1.6 L (2-4) % Baso % (Auto) 0.6 (0-2) % Neut # (Auto) 6000 (1808-4972) /uL Lymph # (Auto) 1900 (3444-2032) /uL Graham # (Auto) 600 (0-900) /uL Eos # (Auto) 100 (0-450) /uL Baso # (Auto) 0 (0-100) /uL Sodium (137-145) mmol/L Potassium (3.4-5.1) mmol/L Chloride (98-107) mmol/L Carbon Dioxide (22-32) mmol/L BUN (7-17) mg/dL Creatinine (0.52-1.04) mg/dL Estimated GFR (>60) mL/min BUN/Creatinine Ratio (6-22) Glucose (80-110) mg/dL Calcium (8.4-10.2) mg/dL Magnesium (1.6-2.3) mg/dL Total Bilirubin (0.2-1.3) mg/dL AST (14-36) IU/L ALT (<35) IU/L Alkaline Phosphatase (38-126) U/L Total Protein (6.3-8.2) g/dL Albumin (3.5-5.0) g/dL Globulin (1.7-4.1) g/dL Albumin/Globulin Ratio (1.0-2.8) Lipase (23-300) U/L TSH (0.47-4.68) uIU/mL Urine Color Yellow Urine Appearance Clear Urine pH 6.0 (4.5-8.0) Ur Specific Carver 1.010 (1.000-1.035) Urine Protein Negative (Negative) Urine Glucose (UA) Negative (Negative) g/dL Urine Ketones Negative (NEGATIVE) Urine Occult Blood Negative (Negative) Urine Nitrate Negative (Negative) Urine Bilirubin Negative (NEGATIVE) Urine Urobilinogen 0.2 (0.2) E.U./dL Ur Leukocyte Esterase Negative (NEGATIVE) Urine RBC None seen (0-5/HPF) Urine WBC 1-5/hpf (0-5/HPF) Ur Squamous Epith Cells 5-10 /hpf H (0-5/HPF) Urine Bacteria Moderate (10-30) H (None) Ur Culture Indicated? Specimen cultured Salicylates (<20) mg/dL U Opiates 300ng/mL cut Negative (Negative) Ur Oxycodone Screen Negative (Negative) Urine Methadone Screen Negative (Negative) Acetaminophen (10-30) ug/mL Ur Barbiturates Screen Negative (Negative) U Tricyclic Antidepress Negative (Negative) Ur Phencyclidine Scrn Negative (Negative) Ur Amphetamines Screen Negative (Negative) U Methamphetamines Scrn Negative (Negative) Ur MDMA Scrn (Ecstasy) Negative (Negative) U Benzodiazepines Scrn Negative (Negative) Urine Cocaine Screen Negative (Negative) U Marijuana (THC) Screen Positive H (Negative) Ethyl Alcohol ( - 10) mg/dL 10/03/22 10/03/22 10/03/22 Range/Units 19:08 19:08 19:08 WBC (4.5-11.0) X10^3/uL RBC (4.0-5.2) X10^6/uL Hgb (12.0-16.0) g/dL Hct (36-46) % MCV (80-100) fL MCH (26-34) PG MCHC (30-36) % RDW (11.6-14.8) % Plt Count (150-400) X10^3/uL Neut % (Auto) (50-75) % Lymph % (Auto) (25-40) % Graham % (Auto) (3-14) % Eos % (Auto) (2-4) % Baso % (Auto) (0-2) % Neut # (Auto) (1342-8770) /uL Lymph # (Auto) (9249-3905) /uL Graham # (Auto) (0-900) /uL Eos # (Auto) (0-450) /uL Baso # (Auto) (0-100) /uL Sodium 138 (137-145) mmol/L Potassium 3.9 (3.4-5.1) mmol/L Chloride 101 (98-107) mmol/L Carbon Dioxide 27 (22-32) mmol/L BUN 9 (7-17) mg/dL Creatinine 0.68 (0.52-1.04) mg/dL Estimated GFR > 60 (>60) mL/min BUN/Creatinine Ratio 13.2 (6-22) Glucose 93 (80-110) mg/dL Calcium 10.3 H (8.4-10.2) mg/dL Magnesium 2.1 (1.6-2.3) mg/dL Total Bilirubin 0.7 (0.2-1.3) mg/dL AST 25 (14-36) IU/L ALT 16 (<35) IU/L Alkaline Phosphatase 74 (38-126) U/L Total Protein 8.2 (6.3-8.2) g/dL Albumin 4.8 (3.5-5.0) g/dL Globulin 3.4 (1.7-4.1) g/dL Albumin/Globulin Ratio 1.4 (1.0-2.8) Lipase 97 (23-300) U/L TSH 1.19 (0.47-4.68) uIU/mL Urine Color Urine Appearance Urine pH (4.5-8.0) Ur Specific Carver (1.000-1.035) Urine Protein (Negative) Urine Glucose (UA) (Negative) g/dL Urine Ketones (NEGATIVE) Urine Occult Blood (Negative) Urine Nitrate (Negative) Urine Bilirubin (NEGATIVE) Urine Urobilinogen (0.2) E.U./dL Ur Leukocyte Esterase (NEGATIVE) Urine RBC (0-5/HPF) Urine WBC (0-5/HPF) Ur Squamous Epith Cells (0-5/HPF) Urine Bacteria (None) Ur Culture Indicated? Salicylates < 1.0 (<20) mg/dL U Opiates 300ng/mL cut (Negative) Ur Oxycodone Screen (Negative) Urine Methadone Screen (Negative) Acetaminophen < 10 (10-30) ug/mL Ur Barbiturates Screen (Negative) U Tricyclic Antidepress (Negative) Ur Phencyclidine Scrn (Negative) Ur Amphetamines Screen (Negative) U Methamphetamines Scrn (Negative) Ur MDMA Scrn (Ecstasy) (Negative) U Benzodiazepines Scrn (Negative) Urine Cocaine Screen (Negative) U Marijuana (THC) Screen (Negative) Ethyl Alcohol < 10 ( - 10) mg/dL MDM Narrative Medical decision making narrative: I would a long discussion with the patient and oncology social worker in the room. Patient is medically cleared. She states she only took 3 of her Xanax pills. Denied taking anything else. Patient is having quite a bit of issues at home specifically taking care of her elderly mother then recently having her have a stroke leaving him blind in 1 eye. She states she discuss very frustrated earlier today because of the issues with the facility where her mother was at and being denied a bed at this facility without having a specific region. She also is having difficulty getting a hold of the biofuels plant construction worker. She states she just could not take it anymore this morning. She states she feels better now. She understands that how she acted this morning was not appropriate. She states she feels safe at home. She states she is not going to hurt herself. She does have a plan in place that if she were to become frustrated once again to the point like what she was this morning she has a friend that she can call. She also states she would return to the emergency department. Patient is alert oriented x3. GCS of 15. Has not clinically intoxicated. In my opinion has the capacity to make decisions. Patient does not want to be admitted to the hospital. I do not feel that the patient meets criteria for an involuntary admission. Her friend is with her here in the ER. The plan will be is to discharge the patient home. Her friend is going to stay with her tonight. She will return to the emergency department for new or worsening symptoms. Discharge Plan Departure Patient Disposition: Home Clinical Impression: Intentional overdose Activity Restrictions/Additional Instructions: I do recommend that tomorrow you contact hospice once again to help you with taking care of your mother. It is important that you take all of your medications as directed. You can return to the emergency department or call your friend if you feel like things are becoming overwhelming. Prescriptions: No Action levothyroxine 25 mcg tablet 50 mcg PO DAILY Patient Comments: 50 mcg escitalopram oxalate 10 mg tablet 10 mg PO DAILY Qty: 90 3RF acetaminophen [Tylenol Extra Strength] 500 mg tablet 500 mg PO Q6H PRN (Reason: Pain) doxazosin 2 mg tablet 8 mg PO BEDTIME Qty: 360 1RF Rx Instructions: Take 4 tabs p.o.at bedtime. cholecalciferol (vitamin D3) 125 mcg (5,000 unit) capsule 125 mcg PO Q OTHER DAY zinc acetate 50 mg (zinc) capsule 50 mg PO DAILY estradiol [Vivelle-Dot] 0.1 mg/24 hr patch semiweekly 0.25 mg topical 2XW Qty: 0 clonazepam 0.5 mg tablet 0.5 mg PO BID PRN (Reason: anxiety) Qty: 15 0RF Rx Instructions: Take 1/2-1 tab twice daily as needed. Referrals: Jamia Drummond ARNP [Primary Care Provider] - Stand Alone Forms: Patient Portal/API
--- NOTE | 2022-10-03 18:42 | PC.NURSE ---
Patient brought back to Emergency department by [employer], patient placed in room 13. All things removed from room and mattress placed on the ground. Patient attempting to leave room, door closed at [id number]. Patient continued to pound on the door. Patients friend Maria Elena took patients purse with her at request of the patient. Dr Acosta opened door and spoke with patient regarding the plan for her and explained the current situation. I am not suicidal right now, I was suicidal earlier and took some medications because my mother can't get the care and help she needs and I am fucking exhausted Patient continues to argue with doctor. Dr Acosta reiterated the plan with patient, reminded patient she can not be yelling and pounding on the door. Patient friend Maria Elena notified of patients request to call her and her contract attorney.
[2022-10-03 18:47] VITALS: BP 173/82; PULSE 88; RESP 20; TEMP 36.8; O2SAT 96
--- NOTE | 2022-10-03 19:00 | PC.NURSE ---
Patient pounding on door, asked to use restroom. RM 13 restroom opened and patient provided UA. Patient requesting to speak to her friend for an update. Kenna PEREZ spoke with friend for update. Patient reminded if she can remain calm and cooperative that will help the process move quicker and smoother. Lab on the way for lab draw.
[2022-10-03 19:09] LABS: Appearance Urine UA CLEAR; Bilirubin Urine UA NEGATIVE (NEGATIVE); Color Urine UA YELLOW; Glucose Urine UA NEGATIVE (Negative); Ketones Urine UA NEGATIVE (NEGATIVE); Leukocyte Esterase Urine UA NEGATIVE (NEGATIVE); Nitrite Urine UA NEGATIVE (Negative); Occult Blood Urine UA NEGATIVE (Negative); Protein Urine UA NEGATIVE (Negative); Urobilinogen Urine UA 0.2 E.U./dL (0.2)
[2022-10-03 19:14] LABS: UR Morphine/Opiate cutoff 300 Negative (Negative); Ur Creatinine Normal (Normal); Ur Specific Gravity Normal (Normal); Urine Amphetamines Negative (Negative); Urine Barbiturates Negative (Negative); Urine Benzodiazepines Negative (Negative); Urine Cocaine Negative (Negative); Urine MDMA Negative (Negative); Urine Methadone Negative (Negative); Urine Methamphetamines Negative (Negative); Urine Oxycodone Negative (Negative); Urine Phencyclidine Negative (Negative); Urine Tetrahydrocannabinol Positive (Negative); Urine Tricyclic Antidepressant Negative (Negative); Urine pH Normal (Normal)
[2022-10-03 19:16] LABS: RBC Urine None Seen (0-5/HPF); WBC Urine 1-5/HPF (0-5/HPF)
[2022-10-03 19:17] LABS: Bacteria Urine Moderate (10-30); Culture Indicated Urine Specimen Cultured; Squamous Epithelial Cell Urine 5-10 /HPF (0-5/HPF)
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
[2022-10-03 19:20] LABS: Add Manual Diff / Slide Review NO; Basophils Absolute Auto 0 /uL (0-100); Basophils Percent Auto 0.6 % (0-2); Eosinophils Absolute Auto 100 /uL (0-450); Eosinophils Percent Auto 1.6 % (2-4); Hematocrit 40.7 % (36-46); Hemoglobin 13.8 g/dL (12.0-16.0); Lymphocytes Absolute Auto 1900 /uL (1100-4500); Lymphocytes Percent Auto 21.9 % (25-40); Mean Corpuscular Hemoglobin 31.2 PG (26-34); Mean Corpuscular Volume 91.7 fL (80-100); Monocytes Absolute Auto 600 /uL (0-900); Monocytes Percent Auto 6.8 % (3-14); Neutrophils Absolute Auto 6000 /uL (1500-7000); Neutrophils Percent Auto 69.1 % (50-75); Platelet Count 208 X10^3/uL (150-400); Red Blood Cell Count 4.43 X10^6/uL (4.0-5.2); Red Cell Distribution Width 13.5 % (11.6-14.8); White Blood Cell Count 8.6 X10^3/uL (4.5-11.0)
[2022-10-03 19:35] LABS: Magnesium 2.1 mg/dL (1.6-2.3)
[2022-10-03 19:37] LABS: Acetaminophen < 10 ug/mL (10-30); Alanine Aminotransferase 16 IU/L (<35); Albumin 4.8 g/dL (3.5-5.0); Albumin Globulin Ratio 1.4 (1.0-2.8); Alkaline Phosphatase 74 U/L (38-126); Aspartate Aminotransferase 25 IU/L (14-36); BUN Creatinine Ratio 13.2 (6-22); Bilirubin Total 0.7 mg/dL (0.2-1.3); Blood Urea Nitrogen 9 mg/dL (7-17); Calcium 10.3 mg/dL (8.4-10.2); Carbon Dioxide 27 mmol/L (22-32); Chloride 101 mmol/L (98-107); Estimated Glomerular Filt Rate > 60 mL/min (>60); Ethanol (ETOH) < 10 mg/dL; Globulin 3.4 g/dL (1.7-4.1); Glucose 93 mg/dL (80-110); HEMOLYSIS 31 (0-50); Lipase 97 U/L (23-300); Potassium 3.9 mmol/L (3.4-5.1); Salicylate < 1.0 mg/dL (<20); Sodium 138 mmol/L (137-145); Total Protein 8.2 g/dL (6.3-8.2)
[2022-10-03 20:07] LABS: Thyroid Stimulating Hormone 1.19 uIU/mL (0.47-4.68)
[2022-10-03 20:15] VITALS: BP 172/88; PULSE 82; RESP 22; TEMP 36.8; O2SAT 96
== END 2022-10-03 20:24 | disposition home or self-care (01) ==
PROVIDERS: Emergency Provider Emergency Medicine; Family Provider Internal Medicine; PCP Internal Medicine
DX: T42.4X2A Poisoning by benzodiazepines, intentional self-harm, initial encounter (principal)
CPT/HCPCS: 36415; 80053; 80305; 80320; 80329; 81001; 83690; 83735; 84443; 85025; 87086; 99284; G0480

== ENCOUNTER → 2024-06-23 12:25 | Outpatient (CLI) | payer OTHER, SELFPAY ==
--- NOTE | 2024-06-23 12:26 | DI.ECHO.S_ITS ---
[facility] : : [address] : : [place] : : [id number] : : Phone: [phone] Echocardiogram Report + + :Name: PHYLLIS TIJERINA Study Date: 06/23/2024 Height: 57.5 in: :[facility] ReadingLocation: Weight: 125 lb : : Gender: Female BSA: 1.5 m2 : :: 1950 Age: 73 yrs BP: 143/78 mmHg: :Reason For Study: MURMUR : :Ordering Physician: SERGIO, : :SAMATNA Performed By: Gogo Borrego : :Referring: SAMANTA HILL : + + Interpretation Summary Normal both left and right ventricle size and function. The ejection fraction is estimated to be 60-65%. No significant valvular abnormality. Procedure: A two-dimensional transthoracic echocardiogram with color flow and Doppler was performed. The study quality was technically adequate. There is no prior echocardiogram noted for this patient. The patient was in sinus rhythm with heart rates between 63-74 bpm during the exam. Left Ventricle: The left ventricle is normal in size and wall thickness. The ejection fraction is estimated to be 60-65%. There are no focal wall motion abnormalities. Right Ventricle: The right ventricle is normal in size and function. Atria: The left atrial size is normal. The right atrium is normal in size. There is no Doppler evidence for an interatrial shunt. Mitral Valve: The mitral valve leaflets appear to open well. There is trace mitral regurgitation. Aortic Valve: The aortic valve is trileaflet. The aortic valve opens well. The aortic valve is slightly calcified. There is no aortic valve stenosis. There is trace aortic regurgitation. Tricuspid Valve: The tricuspid valve leaflets are thin and pliable. There is trace tricuspid regurgitation. The right ventricular systolic pressure is estimated to be at least 27 mmHg based on an estimated right atrial pressure of 3 mm Hg. Pulmonic Valve: The pulmonic valve leaflets are thin and pliable; valve motion is normal. There is mild pulmonic regurgitation. Great Vessels: The aortic root is normal size. The dimensions of the ascending aorta are normal. The IVC is of normal diameter and collapses greater than 50% with a sniff. This suggests a low right atrial pressure of 3 mm Hg. Pericardium/ Pleura There is no pericardial effusion. There is no pleural effusion. MMode/2D Measurements & Calculations LVIDd: 3.9 cm LVOT diam: 1.8 cm LVIDs: 2.6 cm Ao root diam: 2.4 cm FS: 33.7 % asc Aorta Diam: 2.8 cm IVSd: 0.92 cm Ao Arch Diam (Prox Trans): 2.1 cm LVPWd: 0.82 cm LV quinones. diameter/BSA (cm/m^2): 2.6 LV sys. diameter/BSA (cm/m^2): 1.7 LA A2 area: 12.2 cm2 RA long axis: 4.1 cm LA A4 area: 12.5 cm2 RA area: 10.1 cm2 LA length (vol): 4.7 cm RA vol: 21.3 ml LA vol: 27.1 ml RA : 14.4 ml/m2 LA vol index: 18.3 ml/m2 IVC diam: 1.3 cm RVD1 (basal): 3.2 cm RVD2 (mid): 2.5 cm TAPSE: 1.9 cm Doppler Measurements & Calculations Ao V2 max: 165.1 cm/sec LVOT Max Luc: 107.7 cm/sec Ao V2 mean: 108.5 cm/sec LV V1 max P.6 mmHg Ao max P.9 mmHg LV V1 VTI: 24.6 cm Ao mean P.4 mmHg RADHA(I,D): 1.7 cm2 Ao V2 VTI: 34.3 cm RADHA(V,D): 1.6 cm2 sev ratio: 0.72 RADHA indexed to BSA (cm^2/m^2): 1.2 MV E max luc: 74.2 cm/sec TR max luc: 246.1 cm/sec MV A max luc: 93.9 cm/sec TR max P.2 mmHg MV E/A: 0.79 PA V2 max: 107.6 cm/sec Med Peak E' Luc: 5.8 cm/sec PA V2 mean: 71.7 cm/sec E/E' med: 12.9 PA mean P.3 mmHg Lat Peak E' Luc: 9.0 cm/sec PA pr(Accel): 26.3 mmHg E/E' lat: 8.2 E/e' average: 10.5 MV dec time: 0.17 sec SV(ETHEL): 59.6 ml Electronically signed by: Gustavo Nolan on Reading Physician:06/23/2024 04:22 PM
== END ==
PROVIDERS: Family Provider Internal Medicine; PCP Internal Medicine; Referring Provider Internal Medicine; Visit Provider Internal Medicine
DX: R01.1 Cardiac murmur, unspecified (principal); I37.1 Nonrheumatic pulmonary valve insufficiency
CPT/HCPCS: 93306

== ENCOUNTER → 2025-02-02 13:22 | Outpatient (CLI) | payer OTHER, SELFPAY ==
--- NOTE | 2025-02-02 13:23 | DI.RAD.S_ITS ---
PROCEDURE: XR DEXA AXIAL SKELETON INDICATIONS: osteoporosis screening/ hyperhidrosis COMPARISON: [facility], CR, XR DEXA AXIAL SKELETON, 04/18/2018, 10:07. FINDINGS: Lumbar Spine: Bone mineral density 1.048 g/cm2, T score 0, compared to 0.4, demonstrating approximate 5% bone mineral density loss. Left Femoral Neck: Bone mineral density 0.747 g/cm2, T score -0.9, compared to -0.3, demonstrating approximate 9% bone mineral density loss. Left Hip: Bone mineral density 0.960 g/cm2, T score 0.2, compared to 0.5, demonstrate an approximate 5% bone mineral density loss. Fracture Risk Calculation (when applicable): 10-year fracture risk of a major osteoporotic fracture 8.9 percent and of a hip fracture 1.3 percent. (T score greater or equal to -1.0 to: NORMAL) (T score from -1.1 to -2.4: OSTEOPENIA) (T score less than or equal to -2.5: OSTEOPOROSIS) IMPRESSION: Bone mineral density remains within normal limits. However, bone mineral density loss is identified as above. Follow-up guidelines as follows: Osteoporosis: Consider a repeat DEXA and Vertebral Fracture Assessment (VFA) exam in 2 years or sooner if medically necessary, to reassess this patient's status. Osteopenia: Consider a repeat DEXA in 2-3 years to reassess this patient's status, or if there is a new clinical indication. Normal: Consider a repeat DEXA in 5 years or sooner, or if there is a new clinical indication. All treatment decisions require clinical judgment and consideration of individual patient factors, including patient preferences, comorbidities, previous drug use, risk factors not captured in the FRAX model (e.g., frailty, falls, vitamin D deficiency, increased bone turnover, interval significant decline in bone density ) and possible under- or over-estimation of fracture risk by FRAX. In addition, the NOF Guide recommends that FDA-approved medical therapies be considered in postmenopausal women and men age >= 50 years with a: * Hip or vertebral (clinical or morphometric) fracture * T-score of <=-2.5 at the spine or hip * Ten-year fracture probability by FRAX of >= 3% for hip fracture or >=20% for major osteoporotic fracture. Dictated by: Latonia Pardo M.D. on 02/02/2025 at 17:06 Approved by: Latonia Pardo M.D. on 02/02/2025 at 17:08
--- NOTE | 2025-02-02 13:24 | DI.US.S_ITS ---
PROCEDURE: US PELVIC COMPLETE INDICATIONS: HYPERHIDROSIS TECHNIQUE: Real-time scanning was performed of the pelvic organs, with image documentation. Additional endovaginal scanning was necessary due to incomplete visualization of the adnexal and endometrial structures by transabdominal scanning. COMPARISON: None. FINDINGS: Uterus: Uterus is absent. Ovaries: Absent. No adnexal masses. Other: No pathologic free abdominal or pelvic fluid. IMPRESSION: Absent uterus and ovaries. No free fluid. No adnexal masses. We strive to produce accurate, complete, and clear reports of imaging services. To assist us in improving patient care, this report was composed using standard report templates and voice recognition software. Therefore, it may contain abnormal punctuation, insertions and/or omissions. Occasional wrong-word or sound-alike substitutions may occur. Though we review the report and make efforts to correct it, we do recommend that the report be read carefully in proper context to recognize any text inaccuracies. Dictated by: Latonia Pardo M.D. on 02/02/2025 at 17:15 Approved by: Latonia Pardo M.D. on 02/02/2025 at 17:16
== END ==
LOC: US 13:23
PROVIDERS: Family Provider Internal Medicine; PCP Registered Nurse; Referring Provider Registered Nurse; Visit Provider Registered Nurse
DX: Z13.820 Encounter for screening for osteoporosis (principal); Z78.0 Asymptomatic menopausal state; R61 Generalized hyperhidrosis; Z90.710 Acquired absence of both cervix and uterus; Z90.722 Acquired absence of ovaries, bilateral; Z90.79 Acquired absence of other genital organ(s)
CPT/HCPCS: 76856; 77080